=== PATIENT | female | born 1940 | race African-American/Black ===

== ENCOUNTER 2016-10-15 15:24 | Inpatient (IN) ==
[2016-10-15] MEDS ORDERED: methylPREDNISolone 125 MG/2 ML VIAL IVP ONE (15:46)
[2016-10-15 16:04] LABS: Basophils % 0.6 %; Eosinophils % 0.6 %; Hemoglobin 15.6 g/dL (11.5-15.4); Immature Granulocytes % 0.4 % (0-4); Lymphocytes % 20.8 %; Mean Corpuscular HGB Conc 32.5 g/dL (31.6-35.5); Mean Corpuscular Hemoglobin 30.2 pg (28.0-33.3); Mean Platelet Volume 9.3 fL (9.4-12.4); Monocytes # 0.4 K/mcL (0.0-1.3); Monocytes % 8.2 %; Neutrophils # 3.3 K/mcL (1.6-8.9); Nucleated Red Blood Cells 0.6 /100 WBC (0); Platelet Count 204 K/mcL (140-400); Red Blood Count 5.16 M/mcL (3.82-4.97); Red Cell Distribution Width 18.8 % (11.5-14.5); Segmented Neutrophils % 69.4 %
[2016-10-15 16:30] LABS: Calcium 9.8 mg/dL (8.6-10.8); Potassium 3.8 mEq/L (3.5-4.5)
[2016-10-15] MEDS ORDERED: Furosemide 40 MG/4 ML VIAL IVP ONE ×2 (17:30→20:14)
--- NOTE | 2016-10-15 17:56 | Emergency Department Note ---
Disposition Clinical Impression: VERITO (acute kidney injury) Congestive heart failure Qualifiers: Congestive heart failure type: unspecified congestive heart failure type Congestive heart failure chronicity: acute on chronic Qualified Code(s): I50.9 - Heart failure, unspecified Atrial fibrillation Qualifiers: Atrial fibrillation type: chronic Qualified Code(s): I48.2 - Chronic atrial fibrillation Disposition: Admitted As Inpatient Condition: Good Time of Disposition: 18:18 SOB HPI - General Chief Complaint: ED Shortness of Breath/Dyspnea Stated Complaint: SOB Time Seen by Provider: 10/15/16 15:25 Source: patient, family, EMS Limitations: no limitations Nursing Notes Reviewed: Yes Vital Signs Reviewed: Yes - History of Present Illness Patient presents to emergency room with an exacerbation of shortness of breath at home. Family is with her today and noticed that she is having an significant increased work of breathing. Patient otherwise denies any chest pain fevers chills nausea vomiting diarrhea headache or vision changes prior to the events just before arriving in the emergency room. Family was also concerned because over last several days she has had several other medical issues including some left-sided facial droop. They wanted her evaluated this time she refuses last time. No medication changes no recent trauma or injuries. X-ray of the chest does not reveal acute infiltrate. Her family also states that they noted a left-sided facial droop and slurred speech 2 days ago. Family states that this improved within 15 minutes of onset. No history of CVA. Patient will be admitted to the hospital for continuation of care. Onset (ago): Just [employer] Context: recent illness Severity: moderate Consistency/Duration: now resolved Improves with: oxygen, bronchodilators, upright position Worsens with: lying flat, exertion Known history of: COPD, congestive heart failure Associated symptoms: Reports: denies other symptoms Treatment prior to arrival: oxygen, bronchodilator - Related Data Home Medications Medication Instructions Recorded Confirmed Dabigatran [Pradaxa] 150 mg PO BID 07/06/15 10/15/16 Ferrous Sulfate 325 mg PO BID 07/06/15 10/15/16 Fluticasone Propionate [Flovent 1 puff IH BID 07/06/15 10/15/16 Hfa] Omeprazole [PriLOSEC] 40 mg PO QAM 07/06/15 10/15/16 Sertraline [Zoloft] 100 mg PO QAM 07/06/15 10/15/16 Simvastatin [Zocor] 40 mg PO QPM 07/06/15 10/15/16 Albuterol Sulfate [Proair Hfa] 2 puff IH Q4-6H PRN 10/15/16 10/15/16 Torsemide [Demadex] 20 mg PO QPM 10/15/16 10/15/16 Torsemide [Demadex] 40 mg PO QAM 10/15/16 10/15/16 Previous Rx's Medication Instructions Recorded Metoprolol XL (24 HR) Succ [Toprol 50 mg PO DAILY #30 tab.er.24h 07/12/15 Xl] Allergies Allergy/AdvReac Type Severity Reaction Status Date / Time No Known Allergies Allergy Verified 07/06/15 17:22 All systems ED: reviewed and negative except as stated. Constitutional: Denies: fever, chills Cardiovascular: Reports: dyspnea on exertion, orthopnea, edema. Denies: chest pain, palpitations Respiratory: Reports: dyspnea. Denies: cough, wheezes Gastrointestinal: Denies: nausea, vomiting, diarrhea Musculoskeletal: Denies: back pain, neck pain Past Medical History - Past Medical History Attestation: Yes The following information was validated with the patient. Source: patient Medical history: Reports: renal disease, GERD, atrial fibrillation, hyperlipidemia, hypertension, cardiomyopathy, CHF, COPD Psychiatric history: Reports: anxiety, depression - Social History Smoking Status: Never smoker Smokeless Tobacco Status: No Alcohol use: Reports: none Drug use: Reports: none Physical Exam - General Limitations: no limitations General appearance: alert - Chest Chest inspection: Present: normal inspection, symmetric chest wall rise. Absent : tenderness - Respiratory Respiratory exam: Present: normal lung sounds bilaterally. Absent: respiratory distress, wheezes, accessory muscle use - Cardiovascular Cardiovascular exam: Present: regular rate, normal rhythm, normal heart sounds - Abdominal Exam Abdominal exam: Present: soft, Non-Tender, normal bowel sounds. Absent: tenderness, distention, guarding, rebound, rigidity - Extremities Exam Extremities exam: Present: normal inspection, full ROM, normal capillary refill , pedal edema. Absent: tenderness - Back Exam Back exam: Present: normal inspection, full ROM - Neurological Exam Neurological exam: Present: alert, oriented X3, CN II-XII intact, normal gait - Skin Skin exam: Present: warm, dry, intact, normal color Course Course Narrative: Patient seen and examined on arrival. See history of present illness. 76-year- old female presents to the family for evaluation of shortness of breath. Onset was just prior to arrival. Patient has known CHF with poor pulmonary function and cardiac related disease. Family is also concerned because 3 days ago she had a strokelike symptom episode. The patient refused to come out of that time. She presents here today in no acute signs of neurologic deficit. No facial asymmetry no slurred speech. She was off work from his office. My physical exam shows no acute respiratory distress or issue. EMS discussed and described a pulse ox of 83% with accessory muscle use on the arrival to the house. Breathing treatments are given and pulse ox came up to 98% on oxygen. Patient typically does not use oxygen all day long but over the last several days she has required oxygen at all times. Lungs are coarse intermittent crackles and wheezing. NIH stroke scale is negative on presentation here. Family says that she has been back to normal. Patient says that she feels completely normal after being provided the breathing treatments. Lungs still are concerning and evaluation. Patient is pitting edema in lower extremity. Heart is irregular consistent with her history of A. fib. Abdomen soft nontender nondistended. She will be evaluated for cardiac or pulmonary related issues at this time a chest x-ray EKG troponin and BNP as well as basic laboratory workup for this time. CT of the head was ordered at the request of family secondary to strokelike symptoms before. We will review all these concerns medical intervention and discuss admission process. Patient also will need clinical evaluation admission to treat what appears to be exacerbation of either respiratory related issues or pulmonary edema. - Reevaluation(s) Reevaluation #1: Patient found to have a BNP of 2100. This is much higher than its ever been in the past. Patient has acute signs of CHF or heart failure. Lungs do have interstitial markings consistent with fluid accumulation. No focal consolidation. EKG was normal on evaluation. No acute changes or pathology. Patient provided with her home medication for diuresis by IV. Otherwise no other acute issues. She is breathing comfortably in the bed. Single dose of steroids also given here for treatment course. Vital signs of an stable patient is in no distress. Admission process completed. Consultation and conversation was placed in reviewed with the hospitalist nurse practitioner charan. We reviewed the presentation symptoms medical history and intervention. There are no other recommendations this time. Patient is stable resting comfortably in the bed in the mission process will be completed. Admission for acute exacerbation of congestive heart failure with outpatient failure management. Time: 18:15 Vital Signs Temperature 97.7 F 10/15/16 15:26 Pulse Rate 87 10/15/16 15:26 Respiratory Rate 20 10/15/16 15:26 Blood Pressure 101/76 10/15/16 15:26 O2 Sat by Pulse Oximetry 90 10/15/16 15:26 Temperature 97.9 F 10/16/16 07:26 Pulse Rate 66 10/16/16 07:26 Respiratory Rate 15 10/16/16 07:26 Blood Pressure 108/84 10/16/16 07:26 O2 Sat by Pulse Oximetry 95 10/16/16 07:26 Oxygen Delivery Oxygen Delivery Nasal Cannula Shortness of Breath/Dyspnea - MDM Narrative Medical decision making narrative: CHF, fluid overload, shortness of breath - Medical Records Medical records reviewed: Yes I reviewed the patient's medical records. - Lab Data Lab results reviewed: Yes I reviewed the patient's lab results. Result diagrams: 10/16/16 06:03 10/16/16 06:03 Lab Results 10/15/16 10/15/16 10/15/16 Range/Units 15:30 15:30 15:30 WBC 4.8 (4.3-11.1) K/mcL RBC 5.16 H (3.82-4.97) M/mcL Hgb 15.6 H (11.5-15.4) g/dL Hct 48.0 H (35.3-44.9) % MCV 93.0 (83.0-100.0) fL MCH 30.2 (28.0-33.3) pg MCHC 32.5 (31.6-35.5) g/dL RDW 18.8 H (11.5-14.5) % Plt Count 204 (140-400) K/mcL MPV 9.3 L (9.4-12.4) fL Immature Gran % 0.4 (0-4) % Seg Neutrophils % 69.4 % Lymphocytes % 20.8 % Monocytes % 8.2 % Eosinophils % 0.6 % Basophils % 0.6 % Neutrophils # 3.3 (1.6-8.9) K/mcL Lymphocytes # 1.0 (0.6-4.6) K/mcL Monocytes # 0.4 (0.0-1.3) K/mcL Eosinophils # 0.0 (0.0-0.6) K/mcL Basophils # 0.0 (0.0-0.2) K/mcL Nucleated RBCs/100 WBC 0.6 H (0) /100 WBC Sodium 138 (136-145) mEq/L Potassium 3.8 (3.5-4.5) mEq/L Chloride 106 (98-109) mEq/L Carbon Dioxide 16 L (19-29) mEq/L BUN 38 H (7-20) mg/dL Creatinine 1.58 H (0.57-1.11) mg/dL Est GFR ( Amer) 38 L (> 60) Est GFR (Non-Af Amer) 32 L (> 60) BUN/Creatinine Ratio 24 (6-26) Glucose 128 H (70-99) mg/dL Calculated Osmolality 297 (280-300) Calcium 9.8 (8.6-10.8) mg/dL Troponin I 0.03 (0-0.03) ng/mL B-Natriuretic Peptide (0-100) pg/mL 10/15/16 Range/Units 15:30 WBC (4.3-11.1) K/mcL RBC (3.82-4.97) M/mcL Hgb (11.5-15.4) g/dL Hct (35.3-44.9) % MCV (83.0-100.0) fL MCH (28.0-33.3) pg MCHC (31.6-35.5) g/dL RDW (11.5-14.5) % Plt Count (140-400) K/mcL MPV (9.4-12.4) fL Immature Gran % (0-4) % Seg Neutrophils % % Lymphocytes % % Monocytes % % Eosinophils % % Basophils % % Neutrophils # (1.6-8.9) K/mcL Lymphocytes # (0.6-4.6) K/mcL Monocytes # (0.0-1.3) K/mcL Eosinophils # (0.0-0.6) K/mcL Basophils # (0.0-0.2) K/mcL Nucleated RBCs/100 WBC (0) /100 WBC Sodium (136-145) mEq/L Potassium (3.5-4.5) mEq/L Chloride (98-109) mEq/L Carbon Dioxide (19-29) mEq/L BUN (7-20) mg/dL Creatinine (0.57-1.11) mg/dL Est GFR ( Amer) (> 60) Est GFR (Non-Af Amer) (> 60) BUN/Creatinine Ratio (6-26) Glucose (70-99) mg/dL Calculated Osmolality (280-300) Calcium (8.6-10.8) mg/dL Troponin I (0-0.03) ng/mL B-Natriuretic Peptide 2118 H (0-100) pg/mL - Radiology Data Radiology results reviewed: Yes I reviewed the patient's radiology results. Chest x-ray shows stable findings. No acute pathology. Mild interstitial markings consistent with fluid accumulation CT of the head is negative for acute pathology. Chronic microvascular disease - EKG Data EKG attestation: Yes I reviewed and interpreted this EKG. EKG shows normal: Reports: axis, intervals, QRS complexes, ST-T waves Rate: Reports: normal Rhythm: Reports: A.Fib When compared to previous EKG there are: no significant changes Interpretation: Reports: no acute changes, unchanged when compared to prior tracing (date) (09/22/15) Critical Care Time Critical Care Time: Yes Total Critical Care Time: 35 Attestation: Independent of procedures and medical management Attestation Statement - Attestation Attestation: I, Duncan Prasad, examined this patient and my medical decision-making was reviewed with the [facility]/PA/Advanced Practice Nurse/Resident Physician. I agree with the documented findings, disposition and treatment plan as described except to the extent set forth below. 76-year-old female presents with increasing shortness of breath with exertion over the past month. Family states that she is unable to walk up her porch steps at home without becoming short of breath. Patient has notes that she has increased swelling of bilateral lower extremities. She is recently switched from furosemide to torsemide. She denies chest pain, palpitations, diaphoresis , nausea, vomiting, abdominal pain. Denies a change in her diet history. Patient has an elevated BNP. Patient given 40 mg of Lasix in the emergency department. Patient agreed to admission to the hospital for further care.
[2016-10-15] MEDS ORDERED: Aspirin 81 MG TAB.CHEW PO ONE (18:56)
[2016-10-15] MEDS ORDERED: Naloxone 0.4 MG/ML INJ IVP PRN (20:22)
--- NOTE | 2016-10-15 20:39 | Internal Med History&Physical ---
<Inés Tee - Last Filed: 10/15/16 20:30> Date of Encounter: 10/15/16 Time of Encounter: 20:30 Assessment and Plan (1) Acute exacerbation of CHF (congestive heart failure) Current visit: Yes Status: Acute Patient with increasing shortness of breath, increasing BLE edema. BNP 2118. CXR shows interstitial markings consistent with fluid accumulation. Last Echo 07/07/15 showed LVEF of 60-65% with RVSP of 91mmHg, severe pulmonary hypertension, severe tricuspid regurg, RV pressure/volume overload and severe biatrial enlargement. Patient takes Torsemide 40mg am/20mg PM at home. 40mg Lasix IVP BID daily weights I/Os Titrate oxygen to maintain O2 sats > 90% Echocardiogram in the morning. Qualifiers: Congestive heart failure type: unspecified congestive heart failure type Qualified Code(s): I50.9 - Heart failure, unspecified (2) Atrial fibrillation Current visit: Yes Status: Chronic Patient with chronic afib, rate is controlled on metoprolol and she takes Pradaxa for anticoagulation Continue home doses of metoprolol and PRadaxa. Qualifiers: Atrial fibrillation type: chronic Qualified Code(s): I48.2 - Chronic atrial fibrillation (3) VERITO (acute kidney injury) Current visit: Yes Status: Acute Patient's creatinine is 1.58, up from her baseline of 1.07 on 01/05/16. May improve with improvement of her CHF. Monitor chemistry. (4) Chronic respiratory failure Current visit: No Status: Chronic Patient on 2-3L of oxygen at home. She is satting 90-92% on 2-3L here. Titrate oxygen to maintain O2 saturation > 90%. Qualifiers: Respiratory failure complication: hypoxia Qualified Code(s): J96.11 - Chronic respiratory failure with hypoxia (5) Pulmonary hypertension Current visit: No Status: Acute Patient with severe pulmonary hypertension as seen on echocardiogram 07/07/15. She follows with [facility] pulmonology and reports they switched her from lasix to torsemide. Her son reports the doctor she was seeing at [facility] left and so they need to reschedule her appointment. (6) DVT prophylaxis Current visit: No Status: Acute Ambulate with assistance anti-embolic stockings Patient on Pradaxa for her afib. Additional pharmacologic prophylaxis is not indicated. Internal Medicine - H&P: HPI Chief complaint: shortness of breath Admitted From: Emergency Dept Plans for Post Hospital Care: Home History of present illness: Ms. Obregon is a 76 year old female with HTN, Hyperlipidemia, CHF, pulmonary hypertension, afib on pradaxa, chronic respiratory failure on 2-3L NC at home, presented to the ED today with compliants of increasing shortness of breath and BLE edema over the last several months. She reports it has been gradually getting worse and she is having trouble with any activity because of the shortness of breath. She also reports occasional palpitations and occasional nausea. She denies any dizziness, lightheadedness, headache, chest pain, numbness or tingling. Evaluation in the ED revealed elevated BNP of 2118, VERITO with Cr of 1.58 up from baseline of 1.07. CXR showed interstitial markings consistant with fluid accumulation. EKG showed afib with no changes from previous EKG. On exam, patient is alert and oriented. She is tachypnic, though patient's son reports that seems to be her baseline over the last few months. She has fine crackles in bilateral lungs and +3 BLE edema. Heart has regular rate and rhythm with pansystolic murmur. Past Med Surg Social Fam HX - Past Medical History Medical history: renal disease, GERD, atrial fibrillation, hyperlipidemia, hypertension, cardiomyopathy, CHF, COPD Psychiatric history: anxiety, depression - Past Surgical History Surgical History: no surgical history - Social History Smoking Status: Former smoker Smokeless Tobacco Status: No Alcohol use: none Drug use: none - Family History Mother Adopted: No Family Member Ethnicity: Non- Living Status: Hx Family Cancer: Yes (unknown) Father Hx Family Cardiac Disorders: Yes (HTN, cardiac disease) Hx Family Endocrine Disorder: Yes (Diabetes) Internal Medicine - H&P: Meds Dabigatran [Pradaxa] 150 mg PO BID 07/06/15 [History] Ferrous Sulfate 325 mg PO BID 07/06/15 [History] Fluticasone Propionate [Flovent Hfa] 1 puff IH BID 07/06/15 [History] Omeprazole [PriLOSEC] 40 mg PO QAM 07/06/15 [History] Sertraline [Zoloft] 100 mg PO QAM 07/06/15 [History] Simvastatin [Zocor] 40 mg PO QPM 07/06/15 [History] Metoprolol XL (24 HR) Succ [Toprol Xl] 50 mg PO DAILY #30 tab.er.24h 07/12/15 [ Rx] Albuterol Sulfate [Proair Hfa] 2 puff IH Q4-6H PRN 10/15/16 [History] Torsemide [Demadex] 20 mg PO QPM 10/15/16 [History] Torsemide [Demadex] 40 mg PO QAM 10/15/16 [History] Allergies No Known Allergies Allergy (Verified 07/06/15 17:22) All Systems PM: A 10-system review of systems was performed and is negative for pertinent findings except as documented above in the HPI. - Constitutional Constitutional: no chills, no fever(s), no night sweats - EENT Eyes: no change in vision, no discharge, no pain, no photophobia Ears: no ear discharge, no ear pain, no tinnitus Nose, mouth and throat: no dysphagia, no nasal discharge, no neck pain, no sore throat - Cardiovascular Cardiovascular ROS IM: dyspnea, dyspnea on exertion, edema, palpitations, paroxysmal nocturnal dyspnea, no chest pain, no diaphoresis, no lightheadedness , no syncope - Respiratory Respiratory: cough (dry), dyspnea, dyspnea on exertion, no wheezing, no excessive phlegm production - Gastrointestinal Gastrointestinal: nausea (occasional), no abdominal pain, no diarrhea, no hematemesis, no hematochezia, no melena, no vomiting - Genitourinary Genitourinary: no change in urinary stream, no dysuria, no flank pain, no hematuria - Musculoskeletal Musculoskeletal ROS IM: no numbness, no tingling - Integumentary Integumentary IM: no rash, no unusual bruising - Neurological Neurological ROS: no confusion, no convulsions, no focal weakness, no numbness, no tingling, no tremor(s) - Hematologic/Lymphatic Hematologic/Lymphatic: no easy bruising - Constitutional Vitals: Temp Pulse Resp BP Pulse Ox 97.5 F L 61 18 103/83 89 10/15/16 20:07 10/15/16 20:07 10/15/16 20:07 10/15/16 20:07 10/15/16 20:07 General appearance: Present: A&O X 3, pleasant, no acute distress - Head Head exam: Present: atraumatic, normocephalic - Eye Eye exam: Present: PERRL, conjuntiva pink, sclera anicteric Pupils: Present: PERRL - Neck Neck exam general surgery: Present: supple, trachea midline. Absent: lymphadenopathy - Respiratory Respiratory exam: Present: rales, tachypnea. Absent: accessory muscle use, rhonchi, wheezes - Cardiovascular Cardiovascular exam: Present: RRR, +S1, +S2, systolic murmur. Absent: diastolic murmur, gallop, rubs - Expanded Cardiovascular Exam Intensity: 10/11 - GI/Abdominal GI/Abdominal exam: Present: normal bowel sounds, soft, no peritoneal signs. Absent: distended, tenderness - Extremities Exam Extremities exam: Present: pedal edema (+3 BLE edema), warm, radial pulses palpable and symetrical. Absent: calf tenderness, cyanotic - Neurological Exam Neurological exam: Present: CN II-XII intact, oriented X3, no focal deficits. Absent: facial droop, speech deficit - Skin Skin exam: Present: dry, intact Internal Med - H&P Results - Labs CBC & Chem 7: 10/15/16 15:30 10/15/16 15:30 Labs: All Lab Results (24 Hours) 10/15/16 10/15/16 10/15/16 Range/Units 15:30 15:30 15:30 WBC 4.8 (4.3-11.1) K/mcL RBC 5.16 H (3.82-4.97) M/mcL Hgb 15.6 H (11.5-15.4) g/dL Hct 48.0 H (35.3-44.9) % MCV 93.0 (83.0-100.0) fL MCH 30.2 (28.0-33.3) pg MCHC 32.5 (31.6-35.5) g/dL RDW 18.8 H (11.5-14.5) % Plt Count 204 (140-400) K/mcL MPV 9.3 L (9.4-12.4) fL Immature Gran % 0.4 (0-4) % Seg Neutrophils % 69.4 % Lymphocytes % 20.8 % Monocytes % 8.2 % Eosinophils % 0.6 % Basophils % 0.6 % Neutrophils # 3.3 (1.6-8.9) K/mcL Lymphocytes # 1.0 (0.6-4.6) K/mcL Monocytes # 0.4 (0.0-1.3) K/mcL Eosinophils # 0.0 (0.0-0.6) K/mcL Basophils # 0.0 (0.0-0.2) K/mcL Nucleated RBCs/100 WBC 0.6 H (0) /100 WBC Sodium 138 (136-145) mEq/L Potassium 3.8 (3.5-4.5) mEq/L Chloride 106 (98-109) mEq/L Carbon Dioxide 16 L (19-29) mEq/L BUN 38 H (7-20) mg/dL Creatinine 1.58 H (0.57-1.11) mg/dL Est GFR ( Amer) 38 L (> 60) Est GFR (Non-Af Amer) 32 L (> 60) BUN/Creatinine Ratio 24 (6-26) Glucose 128 H (70-99) mg/dL Calculated Osmolality 297 (280-300) Calcium 9.8 (8.6-10.8) mg/dL Troponin I 0.03 (0-0.03) ng/mL B-Natriuretic Peptide (0-100) pg/mL 10/15/16 Range/Units 15:30 WBC (4.3-11.1) K/mcL RBC (3.82-4.97) M/mcL Hgb (11.5-15.4) g/dL Hct (35.3-44.9) % MCV (83.0-100.0) fL MCH (28.0-33.3) pg MCHC (31.6-35.5) g/dL RDW (11.5-14.5) % Plt Count (140-400) K/mcL MPV (9.4-12.4) fL Immature Gran % (0-4) % Seg Neutrophils % % Lymphocytes % % Monocytes % % Eosinophils % % Basophils % % Neutrophils # (1.6-8.9) K/mcL Lymphocytes # (0.6-4.6) K/mcL Monocytes # (0.0-1.3) K/mcL Eosinophils # (0.0-0.6) K/mcL Basophils # (0.0-0.2) K/mcL Nucleated RBCs/100 WBC (0) /100 WBC Sodium (136-145) mEq/L Potassium (3.5-4.5) mEq/L Chloride (98-109) mEq/L Carbon Dioxide (19-29) mEq/L BUN (7-20) mg/dL Creatinine (0.57-1.11) mg/dL Est GFR ( Amer) (> 60) Est GFR (Non-Af Amer) (> 60) BUN/Creatinine Ratio (6-26) Glucose (70-99) mg/dL Calculated Osmolality (280-300) Calcium (8.6-10.8) mg/dL Troponin I (0-0.03) ng/mL B-Natriuretic Peptide 2118 H (0-100) pg/mL - Diagnostic Studies Chest x-ray Additional comments: Chest X-Ray 10/15/16 15:46 IMPRESSION: Gross but stable cardiomegaly. No acute airspace disease. Very large hiatal hernia. These findings are seen on recent CT as well. D/ / Boogie Orta MD / Boogie Orta MD Interpreting Provider: Boogie Orta MD CT scan - head Additional comments: Head CT 10/15/16 15:52 IMPRESSION: No acute intracranial abnormality. Chronic microvascular ischemic changes. D/ / Rafael Quigley MD / Rafael Quigley MD Interpreting Provider: Rafael Quigley MD <Ambar Noland R - Last Filed: 10/15/16 23:22> Date of Encounter: 10/15/16 Assessment and Plan (1) Acute and chronic respiratory failure Current visit: Yes Status: Acute due to CHF exacerbation. CIncrease supplemental O2, to keep sats > 92% Qualifiers: Respiratory failure complication: hypoxia Qualified Code(s): J96.21 - Acute and chronic respiratory failure with hypoxia Internal Medicine - H&P: HPI History of present illness: Ms. Obregon is a 76 year old female All Systems PM: A 10-system review of systems was performed and is negative for pertinent findings except as documented above in the HPI. - Constitutional Vitals: Temp Pulse Resp BP Pulse Ox 97.5 F L 61 18 103/83 92 10/15/16 20:07 10/15/16 20:07 10/15/16 20:07 10/15/16 20:07 10/15/16 20:20 Internal Med - H&P Results - Labs CBC & Chem 7: 10/15/16 15:30 10/15/16 15:30 - Attending Attestation I examined this patient and my medical decision-making was reviewed with the [employer] DESIGNER/ Advanced Practice Nurse. I agree with the documented findings, disposition and treatment plan as described except to the extent set forth below. 76 year old female with HTN, Hyperlipidemia, CHF, pulmonary hypertension, afib on pradaxa, chronic respiratory failure on 2-3L NC at home, presented to the ER with h/o increasing shortness of breath and BLE edema. Patient/daughter report history of pulmonary fibrosis, for which she follows with battery tester and repairer in [facility]. O/E: JVD; extensive bilateral crackles; irregular heart rhythm and a systolic murmur. Bilateral lower extremity edema. EKG personally reviewed by me shows atrial fibrillation, T-wave inversion in leads 1, 2, aVL, 3, V4 to V6. Imaging : CT head reported no acute intracranial abnormality. Chest x-ray reported cross but stable cardiomegaly. No acute airspace disease. BNP is elevated. A/P: Acute exacerbation of CHF (preserved LVEF: 60% based on echo from Jun 2015) : Obtain echocardiogram. Treat with IV Lasix; fluid restriction, daily weights , low sodium diet. Cardiology consultation. Supplement O2 for acute on chronic resp failure
[2016-10-15] MEDS: *HR* Dabigatran 150 MG CAPSULE PO SCH (21:42)
[2016-10-15] MEDS ORDERED: *HR* LORazepam 2 MG/ML VIAL IVP ONE (22:21)
[2016-10-16 06:18] LABS: Basophils % 0.3 %; Hematocrit 50.1 % (35.3-44.9); Hemoglobin 15.9 g/dL (11.5-15.4); Immature Granulocytes % 0.3 % (0-4); Lymphocytes % 24.1 %; Mean Corpuscular HGB Conc 31.7 g/dL (31.6-35.5); Mean Corpuscular Hemoglobin 29.3 pg (28.0-33.3); Mean Corpuscular Volume 92.4 fL (83.0-100.0); Mean Platelet Volume 8.9 fL (9.4-12.4); Monocytes # 0.2 K/mcL (0.0-1.3); Monocytes % 4.6 %; Neutrophils # 2.8 K/mcL (1.6-8.9); Nucleated Red Blood Cells 0.5 /100 WBC (0); Platelet Count 210 K/mcL (140-400); Red Blood Count 5.42 M/mcL (3.82-4.97); Red Cell Distribution Width 18.9 % (11.5-14.5); Segmented Neutrophils % 70.7 %
[2016-10-16 06:28] LABS: Calcium 10.1 mg/dL (8.6-10.8); Magnesium 2.1 mg/dL (1.6-2.6); Potassium 4.2 mEq/L (3.5-4.5)
[2016-10-16] MEDS ORDERED: Metoprolol XL (24 HR) Succ 50 MG TAB.ER.24H PO SCH (09:00)
[2016-10-16] MEDS: *HR* Dabigatran 150 MG CAPSULE PO SCH (09:40)
[2016-10-16] MEDS: Furosemide 40 MG/4 ML VIAL IVP SCH ×2 (09:41→16:17)
--- NOTE | 2016-10-16 10:42 | ECHO - Doppler Report ---
Echocardiogram Name: Susan Obregon Date of Study: 10/16/2016 Date: 1940 Ht: 64.0 in Medical Record#: [id number] Age: 76 Wt: 186.0 lb Gender: Female BSA: 1.9 Order #: [id number] Location: [facility] Room #: 2NE30 Reading Physician: Alis Henson DO Weigher Alloy: NATACHA BetancourtT Ordering Physician: Inés Tee CNP Primary Physician: Franck Andrade MD Indications: Congestive heart failure exacerbation Impressions: Technically inadequate study which was terminated prematurely at patient request. LV size and function appear normal in images provided, EF 55%. RV is suboptimally visualized. However, images provided demonstrate severe RV enlargement and hypokinesis. IVS flattening during diastole consistent with RV volume overload. Very severe right atrial enlargement with bowing of the septum into LA during cardiac cycle suggesting increased RA pressures. Moderate-severe tricuspid regurgitation. Mild pulmonic regurgitation. Valves were not all well evaluated due to premature termination of the study. Subcostal view and IVC were not visualized. Left Ventricular Wall Motion: Rest Echo Findings The apex, apical inferior, mid inferior, basal inferior, apical anterior, mid anterior and basal anterior holguin were not visualized. All other wall segments showed normal motion. Findings: Study Quality * Technically sub-optimal due to clinical status. Patient did not want to complete study. Images after Apical 4-CH were not obtained. ECG Findings * Normal sinus rhythm. Aorta * Normally sized aortic root. Aortic Valve * No aortic regurgitation. * Trileaflet aortic valve. * Mildly calcified aortic valve leaflets. Mitral Valve * No mitral regurgitation. * Normal mitral valve structure. * No mitral stenosis. Tricuspid Valve * Tricuspid valve not well visualized. * Moderate to severe tricuspid regurgitation. Degree of TR was not well evaluated. Pulmonic Valve * Pulmonic valve is not well visualized. * No pulmonic stenosis. * Mild pulmonic regurgitation. Pulmonary Artery * Pulmonary artery not well visualized. Left Atrium * Severely dilated left atrium. Right Atrium * The right atrium is very severely enlarged with septum bowing in the LA during the cardiac cycle. Left Ventricle * Normal LV chamber size, wall thickness and function. * LVEF 55%. * Indeterminate diastolic function. Right Ventricle * RV is suboptimally visualized. However, in images provided, RV appears severely dilated with hypokinetic function. Lat S Charanjit 5.8 History Hypertension Hypercholesteremia Congestive Heart Failure 07/07/15 a Previous Echo was performed. Measurements: BP: 108/ 84 2D Normal Values IVSd: 1.10 cm 0.6 - 1.0 cm LVIDd: 3.60 cm 3.7 - 5.6 cm LVPWd: 1.10 cm 0.6 - 1.1 cm LVIDs: 2.50 cm 1.5 - 3.6 cm AO: 2.45 cm < 4.0 cm LA: 4.50 cm 2.0 - 4.0cm %FS: 30.60 cm >25 % LA volume: 78 Mitral Valve Peak E:.54 m/sec Peak E' Lat Charanjit:14.8 cm/s Peak E' Med Charanjit:6.8 cm/s E/E' Lat Ratio:3.7 E/E' Med Ratio:8 Tricuspid Valve TV Regurg Peak Grad: 38.00mmHg TV Regurg Peak Charanjit: 3.08m/sec Updated by Alis Henson on 10/16/2016 10:34:28 AM electronically signed on 10/16/2016 10:38:42 AM with status of Final Wall Motion Yanes: 1=Normal, 2=Hypokinesis, 3=Akinesis, 4=Dyskinesis, 5=Aneurysmal, 6=Hyperkinetic, X=Not Visualized (Blank)=Missing
--- NOTE | 2016-10-16 12:48 | Cardiology Consult Note ---
Date of Encounter: 10/16/16 Time of Encounter: 12:42 Assessment and Plan (1) 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 Current Visit: Yes Status: Acute TTE completed and similair to previous TTE in 2015. EF 55%, RV suboptimally visualized, severe RV enlargement and hypokenesis. Flattening of IVS consistent with pressure/fluid overload. Very severe RA enlargement with bowing of intra-atrial septum into LA consistent with increased RA pressures. Moderate to severe tricuspid regurgitation. Mild AL. Fluid overload on exam. BNP 2118. Symptoms improved with IV lasix. Continue diuretic. Monitor BMP. Low sodium diet, daily weights, and strict I&O. No I&O documented yet. Pt evaluated late last year at [facility] heart failure clinic. CHF education reviewed. (2) Syncope Current Visit: Yes Status: Acute Reports syncopal episode, one three weeks ago and one this week that occurs with position change. Describes orthostasis. B/p marginally low. Discussed with Dr. Awilda Gao, we will decrease toprol. Continue to monitor. No concerning arrythmias seen on telemetry. Avg HR [address] head negative. Qualifiers: Syncope type: unspecified Qualified Code(s): R55 - Syncope and collapse (3) Atrial fibrillation Current Visit: Yes Status: Chronic H/o chronic afib on pradaxa. Telemetry review shows rate control. Qualifiers: Atrial fibrillation type: chronic Qualified Code(s): I48.2 - Chronic atrial fibrillation Discussion w patient/family: The assessment and plan as outlined above was discussed with the patient and/or family members who expressed understanding and agreement. All questions were answered. Thank you for involving us in the care of your patient. Please call with any questions. History of Present Illness Consult date: 10/16/16 Requesting physician: Ambar Noland Consult reason: CHF Chief complaint: SOB, syncope History of present illness: Ms. Obregon is a 76 year old female with a history of right sided heart failure CHF, pulmonary hypertension on home 02, COPD, and atrial fibrillation on pradaxa who presented with increasing SOB and BLE edema for three weeks. Cardiology consulted for CHF. As of note pt is a poor historian and family helped provide history. Daughter at bedside. presented after my exam and reported syncopal episode in the past couple of weeks. One was when she stood up and ambulated into the bathroom. He also states that she had facial drooping that resolved. CT of her head was negative. She denies chest pain or palpitations. SOB improved with IV lasix. She was evaluated at [facility] CHF clinic and by pulmonology and report reviewed. Right-sided heart failure thought to be secondary to diastolic dysfunction and COPD. No further testing completed. Diuretic was adjusted at that time. Past Med Surg Social Fam HX - Past Medical History Medical history: atrial fibrillation, CHF, COPD, GERD, hyperlipidemia, hypertension, renal disease, other (right sided heart failure, pulmonary hypertension, ) Psychiatric history: anxiety, depression - Past Surgical History Surgical History: no surgical history - Social History Smoking Status: Never smoker Smokeless Tobacco Status: No Alcohol use: none Drug use: none - Family History Mother Adopted: No Family Member Ethnicity: Non- Living Status: Hx Family Cancer: Yes (unknown) Father Hx Family Cardiac Disorders: Yes (HTN, cardiac disease) Hx Family Endocrine Disorder: Yes (Diabetes) Medications and Allergies Dabigatran [Pradaxa] 150 mg PO BID 07/06/15 [History] Ferrous Sulfate 325 mg PO BID 07/06/15 [History] Fluticasone Propionate [Flovent Hfa] 1 puff IH BID 07/06/15 [History] Omeprazole [PriLOSEC] 40 mg PO QAM 07/06/15 [History] Sertraline [Zoloft] 100 mg PO QAM 07/06/15 [History] Simvastatin [Zocor] 40 mg PO QPM 07/06/15 [History] Metoprolol XL (24 HR) Succ [Toprol Xl] 50 mg PO DAILY #30 tab.er.24h 07/12/15 [ Rx] Albuterol Sulfate [Proair Hfa] 2 puff IH Q4-6H PRN 10/15/16 [History] Torsemide [Demadex] 20 mg PO QPM 10/15/16 [History] Torsemide [Demadex] 40 mg PO QAM 10/15/16 [History] Allergies No Known Allergies Allergy (Verified 07/06/15 17:22) All Systems Review: A 10-system review of systems was performed and is negative for pertinent findings except as documented above in the HPI. Physical Examination Vital Signs, Last 4 Hours Temp Pulse Resp BP Pulse Ox 10/16/16 11:50 97.5 F L 60 16 99/73 93 10/16/16 09:00 95 General: No Apparent Distress, Other (Pt falls asleep easily during exam. ) HEENT: Atraumatic, Normocephaly, Mucus Membranes Moist Neck: No JVD, Normal carotid pulses Cardiac: Other (Irregularly irregular) Lungs: Other (Faint rales bilateral bases increased on left. ) Neuro: Alert and responsive, No focal deficits noted Abdomen: Soft, Non-Tender Skin: No rashes noted on visualized skin Musculoskeletal: No Chest Wall Tenderness Extremities: No Clubbing, No Cyanosis, Normal Pulses, Other (2+ edema up to knees. ) Results 10/16/16 06:03 10/16/16 06:03 Lab Results 10/16/16 10/16/16 06:03 06:03 WBC 3.9 L Hgb 15.9 H Hct 50.1 H Plt Count 210 Sodium 137 Potassium 4.2 Chloride 104 Carbon Dioxide 17 L BUN 41 H Creatinine 1.70 H Glucose 143 H Calcium 10.1 Magnesium 2.1 - Imaging and Cardiology Echo: report reviewed - EKG Interpretation EKG results cardiology: other (Telemetry review shows atrial fibrillation rate controlled. Avg HR 71.) Consult Discharge Plan - Plan Referrals: Franck Andrade MD [Primary Care Provider] -
--- NOTE | 2016-10-16 14:03 | Internal Med Progress Note ---
<Aure Garrett - Last Filed: 10/16/16 15:36> Date of Encounter: 10/16/16 Time of Encounter: 14:01 - Assessment and plan (1) Acute exacerbation of CHF (congestive heart failure) Current Visit: Yes Status: Acute Assessment and plan: Echo similar to previous from 2014. EF 55%, severe RV enlargement and hypokinesis. Flattening of IVS consistent with pressure/fluid overload. Very severe RA enlargement with bowing of intra-atrial septum into LA consistent with increased RA pressures. Moderate to severe tricuspid regurgitation. low Na diet, daily weights, I/Os IV lasix 40mg BID (Patient takes Torsemide 40mg am/20mg PM at home.) Qualifiers: Congestive heart failure type: unspecified congestive heart failure type Qualified Code(s): I50.9 - Heart failure, unspecified (2) Acute and chronic respiratory failure Current Visit: Yes Status: Acute Assessment and plan: requires 2.5-3 L O2 at home (2.5 at rest, 3 while ambulating) currently on 4L O2, titrate O2 to maintain sats >90% Qualifiers: Respiratory failure complication: hypoxia Qualified Code(s): J96.21 - Acute and chronic respiratory failure with hypoxia (3) VERITO (acute kidney injury) Current Visit: Yes Status: Acute Assessment and plan: renal function slightly worse today Cr 1.58>1.7 GFR 38>35 continue to monitor baseline 01/05/16 Cr 1.07 GFR >60 (4) Atrial fibrillation Current Visit: Yes Status: Chronic Assessment and plan: rate controlled continue home medications of metoprolol and pradaxa Qualifiers: Atrial fibrillation type: chronic Qualified Code(s): I48.2 - Chronic atrial fibrillation (5) DVT prophylaxis Current Visit: No Status: Acute Assessment and plan: Ambulate with assistance anti-embolic stockings Patient on Pradaxa for her afib. Additional pharmacologic prophylaxis is not indicated. - Subjective Interval history: Patient feeling better than yesterday. Still with increased O2 requirements. - Constitutional Vitals: Temp Pulse Resp BP Pulse Ox 97.5 F L 60 16 99/73 93 10/16/16 11:50 10/16/16 11:50 10/16/16 11:50 10/16/16 11:50 10/16/16 11:50 General appearance: Present: A&O X 3, pleasant, no acute distress - Head Head exam: Present: atraumatic, normocephalic - Eye Eye exam: Present: EOMI, PERRL, sclera anicteric - Neck Neck exam general surgery: Present: supple - Respiratory Respiratory exam: Present: rales - Cardiovascular Cardiovascular exam: Present: irregular rhythm, +S1, +S2, systolic murmur - GI/Abdominal GI/Abdominal exam: Present: normal bowel sounds, soft. Absent: tenderness - Extremities Exam Extremities exam: Present: pedal edema (1+) - Neurological Exam Neurological exam: Present: alert, oriented X3, no focal deficits - Skin Skin exam: Present: dry, warm Internal Medicine: Result - Labs CBC & Chem 7: 10/16/16 06:03 10/16/16 06:03 Labs: Short CBC 10/16/16 Range/Units 06:03 WBC 3.9 L (4.3-11.1) K/mcL Hgb 15.9 H (11.5-15.4) g/dL Hct 50.1 H (35.3-44.9) % Plt Count 210 (140-400) K/mcL Neutrophils # 2.8 (1.6-8.9) K/mcL BMP 10/16/16 06:03 Sodium 137 Potassium 4.2 Chloride 104 Carbon Dioxide 17 L BUN 41 H Creatinine 1.70 H Glucose 143 H Calcium 10.1 - VTE Reasons for not Prescribing Prophylaxis: Not indicated-Anticoagulated or INR therapeutic Consult Discharge Plan - Plan Referrals: Franck Andrade MD [Primary Care Provider] - <Pepe Raygoza - Last Filed: 10/16/16 17:54> Date of Encounter: 10/16/16 - Assessment and plan (1) Acute and chronic respiratory failure Current Visit: Yes Status: Acute Qualifiers: Respiratory failure complication: hypoxia Qualified Code(s): J96.21 - Acute and chronic respiratory failure with hypoxia (2) Acute exacerbation of CHF (congestive heart failure) Current Visit: Yes Status: Acute Qualifiers: Congestive heart failure type: diastolic Qualified Code(s): I50.33 - Acute on chronic diastolic (congestive) heart failure (3) 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 Current Visit: Yes Status: Acute Assessment and plan: R heart failure noted on echo. (4) Atrial fibrillation Current Visit: Yes Status: Chronic Qualifiers: Atrial fibrillation type: chronic Qualified Code(s): I48.2 - Chronic atrial fibrillation (5) Pulmonary hypertension Current Visit: No Status: Acute (6) VERITO (acute kidney injury) Current Visit: Yes Status: Acute (7) CKD (chronic kidney disease) Current Visit: No Status: Chronic Qualifiers: Chronic kidney disease stage: stage 3 (moderate) Qualified Code(s): N18.3 - Chronic kidney disease, stage 3 (moderate) - Constitutional Vitals: Temp Pulse Resp BP Pulse Ox 97.5 F L 61 17 106/68 93 10/16/16 15:51 10/16/16 15:51 10/16/16 15:51 10/16/16 15:51 10/16/16 15:51 Internal Medicine: Result - Labs CBC & Chem 7: 10/16/16 06:03 10/16/16 06:03 Labs: Short CBC 10/16/16 Range/Units 06:03 WBC 3.9 L (4.3-11.1) K/mcL Hgb 15.9 H (11.5-15.4) g/dL Hct 50.1 H (35.3-44.9) % Plt Count 210 (140-400) K/mcL Neutrophils # 2.8 (1.6-8.9) K/mcL BMP 10/16/16 06:03 Sodium 137 Potassium 4.2 Chloride 104 Carbon Dioxide 17 L BUN 41 H Creatinine 1.70 H Glucose 143 H Calcium 10.1 - Attending Attestation I examined this patient and my medical decision-making was reviewed with the Resident Physician on 10/16/16. I agree with the documented findings, disposition and treatment plan as described except to the extent set forth below. Ms. Obregon is currently admitted for acute exac chronic diastolic CHF. She remains moderate to high risk due to potential for worsening cardiac issues. Ms. Obregon is beginning to feel somewhat better. She has had some diuresis but not back to baseline. No CP. No GI symptoms. Exam Alert. Comfortable and pleasant Heart reg with systolic murmur Lungs diminished but clear currently Abd soft Edema present I/P 1. Acute on chronic diastolic heart failure 2. Pulmonary hypertension 3. Hypoxic resp failure. 4. VERITO Further diagnoses and plan as above. Anticipate d/c in next 1-2 days.
--- NOTE | 2016-10-16 17:44 | Electrocardiograph Report ---
[place] [id number] Test Date: 2016-10-15 Pat Name: Susan Obregon Department: 102 Room: 2NE30 Gender: F Back Tufter: : 1940 Requested By: Dennis Maciel Order Number: [id number] Reading MD: Duncan Gao Measurements Intervals [place] Rate: 85 P: LA: 0 QRS: 92 QRSD: 110 T: 116 QT: 362 QTc: 405 Interpretive Statements ATRIAL FIBRILLATION BORDERLINE RIGHT AXIS DEVIATION INCOMPLETE RIGHT BUNDLE BRANCH BLOCK NONSPECIFIC T-WAVE ABNORMALITY ABNORMAL RHYTHM ECG Electronically Signed On 10-16-2016 17:42:24 EDT by Duncan Gao
[2016-10-16] MEDS: *HR* Dabigatran 75 MG CAPSULE PO SCH (20:41)
[2016-10-17] MEDS: *HR* Dabigatran 75 MG CAPSULE PO SCH ×2 (08:55→20:42)
[2016-10-17] MEDS: Metoprolol XL (24 HR) Succ 50 MG TAB.ER.24H PO SCH (08:55)
[2016-10-17 09:01] LABS: Potassium 3.8 mEq/L (3.5-4.5)
--- NOTE | 2016-10-17 09:28 | Internal Med Progress Note ---
<Aure Garrett - Last Filed: 10/17/16 09:26> Date of Encounter: 10/17/16 Time of Encounter: 09:26 - Assessment and plan (1) Acute exacerbation of CHF (congestive heart failure) Current Visit: Yes Status: Acute Assessment and plan: Echo similar to previous from 2014. EF 55%, severe RV enlargement and hypokinesis. Flattening of IVS consistent with pressure/fluid overload. Very severe RA enlargement with bowing of intra-atrial septum into LA consistent with increased RA pressures. Moderate to severe tricuspid regurgitation. low Na diet, daily weights, I/Os IV lasix 40mg BID (Patient takes Torsemide 40mg am/20mg PM at home.) No output recorded for yesterday, although patient did lose 0.9 kg. Strict I&O order placed. Qualifiers: Congestive heart failure type: diastolic Qualified Code(s): I50.33 - Acute on chronic diastolic (congestive) heart failure (2) Acute and chronic respiratory failure Current Visit: Yes Status: Acute Assessment and plan: requires 2.5-3 L O2 at home (2.5 at rest, 3 while ambulating) currently on 5L O2, titrate O2 to maintain sats >90% Qualifiers: Respiratory failure complication: hypoxia Qualified Code(s): J96.21 - Acute and chronic respiratory failure with hypoxia (3) VERITO (acute kidney injury) Current Visit: Yes Status: Acute Assessment and plan: renal function improved Cr 1.58>1.7>1.56 GFR 38>35>39 continue to monitor baseline 01/05/16 Cr 1.07 GFR >60 (4) Atrial fibrillation Current Visit: Yes Status: Chronic Assessment and plan: rate controlled continue home medications of metoprolol and pradaxa Qualifiers: Atrial fibrillation type: chronic Qualified Code(s): I48.2 - Chronic atrial fibrillation (5) DVT prophylaxis Current Visit: No Status: Acute Assessment and plan: Ambulate with assistance anti-embolic stockings Patient on Pradaxa for her afib. Additional pharmacologic prophylaxis is not indicated. - Subjective Interval history: Patient feeling better than yesterday. Still with increased O2 requirements although denies shortness of breath. - Constitutional Vitals: Temp Pulse Resp BP Pulse Ox 97.8 F 58 16 100/65 93 10/17/16 07:18 10/17/16 07:18 10/17/16 07:18 10/17/16 07:18 10/17/16 07:18 General appearance: Present: A&O X 3, pleasant, no acute distress - Head Head exam: Present: atraumatic, normocephalic - Eye Eye exam: Present: EOMI, PERRL, sclera anicteric - Neck Neck exam general surgery: Present: supple - Respiratory Respiratory exam: Present: CTAB - Cardiovascular Cardiovascular exam: Present: irregular rhythm, +S1, +S2, systolic murmur - GI/Abdominal GI/Abdominal exam: Present: normal bowel sounds, soft. Absent: tenderness - Extremities Exam Extremities exam: Present: pedal edema (1+), warm Additional comments: dorsalis pedis pulses 2/4 - Neurological Exam Neurological exam: Present: alert, oriented X3, no focal deficits - Skin Skin exam: Present: dry, warm Internal Medicine: Result - Labs CBC & Chem 7: 10/16/16 06:03 10/17/16 08:41 Labs: BMP 10/17/16 08:41 Sodium 139 Potassium 3.8 Chloride 106 Carbon Dioxide 20 BUN 44 H Creatinine 1.56 H Glucose 99 Calcium 10.0 - VTE Reasons for not Prescribing Prophylaxis: Not indicated-Anticoagulated or INR therapeutic Consult Discharge Plan - Plan Instructions: Heart Failure (DC), Atrial Fibrillation (DC), Acute Respiratory Distress Syndrome (DC), Acute Kidney Injury (DC), Acute Kidney Injury (GEN), Cellulitis (DC), Chronic Obstructive Pulmonary Disease (DC), Pneumonia (DC), Acute Kidney Injury, [employer] (GEN) Referrals: Franck Andrade MD [Primary Care Provider] - <Pepe Raygoza - Last Filed: 10/18/16 19:48> Date of Encounter: 10/17/16 - Assessment and plan (1) Acute and chronic respiratory failure Current Visit: Yes Status: Acute Qualifiers: Respiratory failure complication: hypoxia Qualified Code(s): J96.21 - Acute and chronic respiratory failure with hypoxia (2) Acute exacerbation of CHF (congestive heart failure) Current Visit: Yes Status: Acute Qualifiers: Congestive heart failure type: diastolic Qualified Code(s): I50.33 - Acute on chronic diastolic (congestive) heart failure (3) 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 Current Visit: Yes Status: Acute Assessment and plan: R heart failure. (4) Atrial fibrillation Current Visit: Yes Status: Chronic Qualifiers: Atrial fibrillation type: chronic Qualified Code(s): I48.2 - Chronic atrial fibrillation (5) Pulmonary hypertension Current Visit: No Status: Chronic (6) VERITO (acute kidney injury) Current Visit: Yes Status: Acute (7) CKD (chronic kidney disease) Current Visit: No Status: Chronic Qualifiers: Chronic kidney disease stage: stage 3 (moderate) Qualified Code(s): N18.3 - Chronic kidney disease, stage 3 (moderate) - Constitutional Vitals: Temp Pulse Resp BP Pulse Ox 97.8 F 77 18 100/79 94 10/18/16 16:00 10/18/16 16:00 10/18/16 16:00 10/18/16 16:00 10/18/16 16:00 Internal Medicine: Result - Labs CBC & Chem 7: 10/16/16 06:03 10/18/16 05:40 Labs: BMP 10/18/16 05:40 Sodium 138 Potassium 3.5 Chloride 106 Carbon Dioxide 19 BUN 41 H Creatinine 1.33 H Glucose 90 Calcium 9.6 - Impressions Impressions Chest X-Ray 10/18/16 10:05 IMPRESSION: No acute cardiopulmonary process. D/ / 10/18/2016 15:16:34 Vicente Murillo MD / earnold Interpreting Provider: Vicente Murillo MD - Attending Attestation I examined this patient and my medical decision-making was reviewed with the Resident Physician on 10/18/16. I agree with the documented findings, disposition and treatment plan as described except to the extent set forth below. Ms. Obregon is currently admitted for acute exac diastolic heart failure and VERITO. She is moderate to high risk due to potential for worsening cardiac status. Ms. Obregon still is quite edematous. She has diuresed some but still dyspneic. No diarrhea. No fever, chills or chest pain. Exam Alert Comfortable Heart reg with murmur Lungs with rales Edema present I/P 1. Acute diastolic heart failure 2. Resp failure Further diagnoses and plan as above.
--- NOTE | 2016-10-17 09:59 | Cardiology Progress Note ---
Date of Encounter: 10/17/16 Time of Encounter: 09:15 Assessment and Plan (1) 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 Current Visit: Yes Status: Acute TTE completed and similair to previous TTE in 2015. EF 55%, RV suboptimally visualized, severe RV enlargement and hypokenesis. Flattening of IVS consistent with pressure/fluid overload. Very severe RA enlargement with bowing of intra-atrial septum into LA consistent with increased RA pressures. Moderate to severe tricuspid regurgitation. Mild WI. Fluid overload on exam. BNP 2118. Symptoms improved with IV lasix. Continue diuretic. Creatinine improving. Monitor BMP. (On torsemide 40 mg am and 20 mg pm at home.) Low sodium diet, daily weights, and strict I&O. ~ No I&O recorded. Again, discussed with nursing staff and patient importance of I&O. Weight down .8 kg. BLE edema chronic per family but still increased from baseline. Pt evaluated late last year at [facility] heart failure clinic, symptom management recommended. No further testing at that time. No RHC recommended. CHF education reviewed with patient. (2) Syncope Current Visit: Yes Status: Acute Son reports pt had syncopal episode, one three weeks ago and one this week that occurs with position change. Patient does not remember syncope. Describes orthostasis. B/p marginally low. Discussed with Dr. Awilda Gao, toprol xl decreased yesterday. Continue to monitor. No concerning arrhythmias seen on telemetry. Avg HR [address] head negative. Qualifiers: Syncope type: unspecified Qualified Code(s): R55 - Syncope and collapse (3) Atrial fibrillation Current Visit: Yes Status: Chronic H/o chronic afib on pradaxa. Telemetry review shows rate controlled afib. Tolerating lower dose of toprol XL. Qualifiers: Atrial fibrillation type: chronic Qualified Code(s): I48.2 - Chronic atrial fibrillation Discussion w patient/family: The assessment and plan as outlined above was discussed with the patient and/or family members who expressed understanding and agreement. All questions were answered. Thank you for involving us in the care of your patient. Please call with any questions. Subjective Principal diagnosis: right sided CHF Interval history: Pt sitting in chair. Reports SOB improved. Continues to have BLE edema. She is a poor historian. No family available at this time. Objective Vital Signs, Last 4 Hours Temp Pulse Resp BP Pulse Ox 10/17/16 07:18 97.8 F 58 16 100/65 93 General: Conversant, No Apparent Distress HEENT: Atraumatic, Normocephaly, Mucus Membranes Moist Neck: No JVD, Normal carotid pulses Cardiac: Other (Irregularly irregular) Lungs: Normal Breath Sounds, No Wheeze, Rales, Rhonchi Neuro: Alert and responsive, No focal deficits noted Abdomen: Soft, Non-Tender Skin: No rashes noted on visualized skin Musculoskeletal: No Chest Wall Tenderness Extremities: No Clubbing, No Cyanosis, Normal Pulses, Other (2+ BLE edema up to knees.) Results 10/16/16 06:03 10/17/16 08:41 Lab Results 10/17/16 08:41 Sodium 139 Potassium 3.8 Chloride 106 Carbon Dioxide 20 BUN 44 H Creatinine 1.56 H Glucose 99 Calcium 10.0 - Imaging and Cardiology Echo: report reviewed - EKG Interpretation EKG results cardiology: other (Telemetry review shows atrial fibrillation HR currently 70-90's. Avg HR 65 bpm.) - VTE Reasons for not Prescribing Prophylaxis: Not indicated-Anticoagulated or INR therapeutic Consult Discharge Plan - Plan Referrals: Franck Andrade MD [Primary Care Provider] -
[2016-10-17] MEDS: Furosemide 40 MG/4 ML VIAL IVP SCH ×2 (10:40→16:27)
[2016-10-18 06:24] LABS: Calcium 9.6 mg/dL (8.6-10.8); Potassium 3.5 mEq/L (3.5-4.5)
[2016-10-18] MEDS ORDERED: Furosemide 40 MG TABLET PO SCH (08:45)
[2016-10-18] MEDS: *HR* Dabigatran 75 MG CAPSULE PO SCH ×2 (09:34→21:51)
[2016-10-18] MEDS: Metoprolol XL (24 HR) Succ 50 MG TAB.ER.24H PO SCH (09:34)
[2016-10-18] MEDS ORDERED: Furosemide 40 MG/4 ML VIAL IVP SCH ×2 (10:15→17:00)
--- NOTE | 2016-10-18 14:07 | Cardiology Progress Note ---
Date of Encounter: 10/18/16 Time of Encounter: 13:30 Assessment and Plan (1) 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 Current Visit: Yes Status: Acute Patient presents with 2 week history of worsening shortness of breath and difficulty breathing. CXR upon presentation: stable, but gross cardiomegaly. BNP 2117 TTE 10/16/16: EF 55%, RV suboptimally visualized, severe RV enlargement and hypokenesis. Flattening of IVS consistent with pressure/fluid overload. Very severe RA enlargement with bowing of intra-atrial septum into LA consistent with increased RA pressures. Moderate to severe tricuspid regurgitation. Mild KS ---similar to TTE in 2015. Continues to exhibit volume overload upon exam. States symptoms have improved, not yet at baseline. Will increase lasix to 80 mg BID, add supplemental K as it was low normal today. SCr continues to improve with diuresis, continue to monitor kidney function closely. I&O are not accurate as patient is incontinent at times. Cumulative balance: + 660mL. Weight is down 0.8 kg today. Continue strict I&O (refuses fried cath), Na/Fluid restriction diet, and daily weights. Of note, Pt evaluated late last year at [facility] heart failure clinic, symptom management recommended. No further testing at that time. No RHC recommended. CHF education reviewed with patient. (2) Atrial fibrillation Current Visit: Yes Status: Chronic H/o chronic afib on pradaxa. Telemetry review shows rate controlled afib. Tolerating lower dose of toprol XL. Qualifiers: Atrial fibrillation type: chronic Qualified Code(s): I48.2 - Chronic atrial fibrillation (3) Syncope Current Visit: Yes Status: Acute Son reports pt had syncopal episode, one three weeks ago and one this week that occurs with position change. Patient does not remember syncope. Describes orthostasis. B/p marginally low. Toprol decreased; patient is asymptomatic. Denies complaints overnight. 12 hour tele: avg HR 66 bpm atrial fibrillation. No pause or block noted. CT head negative. Qualifiers: Syncope type: unspecified Qualified Code(s): R55 - Syncope and collapse Discussion w patient/family: The assessment and plan as outlined above was discussed with the patient and/or family members who expressed understanding and agreement. All questions were answered. Thank you for involving us in the care of your patient. Please call with any questions. The patient will be discussed and reviewed with Dr. Mendez; changes to be made accordingly. Subjective Principal diagnosis: right sided CHF Objective Vital Signs, Last 4 Hours Temp Pulse Resp BP Pulse Ox 10/18/16 12:00 91 10/18/16 11:22 97.6 F 72 18 106/77 91 Results 10/16/16 06:03 10/18/16 05:40 Lab Results 10/18/16 05:40 Sodium 138 Potassium 3.5 Chloride 106 Carbon Dioxide 19 BUN 41 H Creatinine 1.33 H Glucose 90 Calcium 9.6 - VTE Reasons for not Prescribing Prophylaxis: Not indicated-Anticoagulated or INR therapeutic Consult Discharge Plan - Plan Instructions: Heart Failure (DC), Atrial Fibrillation (DC), Acute Respiratory Distress Syndrome (DC), Acute Kidney Injury (DC), Acute Kidney Injury (GEN), Cellulitis (DC), Chronic Obstructive Pulmonary Disease (DC), Pneumonia (DC), Acute Kidney Injury, Compliance Quality Performance Analyst (GEN) Referrals: Franck Andrade MD [Primary Care Provider] -
--- NOTE | 2016-10-18 15:41 | Internal Med Progress Note ---
<Aure Garrett - Last Filed: 10/18/16 15:38> Date of Encounter: 10/18/16 Time of Encounter: 15:38 - Assessment and plan (1) Acute exacerbation of CHF (congestive heart failure) Current Visit: Yes Status: Acute Assessment and plan: Echo similar to previous from 2014. EF 55%, severe RV enlargement and hypokinesis. Flattening of IVS consistent with pressure/fluid overload. Very severe RA enlargement with bowing of intra-atrial septum into LA consistent with increased RA pressures. Moderate to severe tricuspid regurgitation. appreciate cardiology recommendations low Na diet, daily weights, I/Os (I&Os inaccurate due to patient incontinence) lasix increased to 80 mg IV BID potassium added due to K 3.5 this AM Qualifiers: Congestive heart failure type: diastolic Qualified Code(s): I50.33 - Acute on chronic diastolic (congestive) heart failure (2) Acute and chronic respiratory failure Current Visit: Yes Status: Acute Assessment and plan: requires 2.5-3 L O2 at home (2.5 at rest, 3 while ambulating) currently on 5L O2, titrate O2 to maintain sats >90% unable to decrease O2 at this time. Chest x-ray negative for acute process Qualifiers: Respiratory failure complication: hypoxia Qualified Code(s): J96.21 - Acute and chronic respiratory failure with hypoxia (3) VERITO (acute kidney injury) Current Visit: Yes Status: Acute Assessment and plan: renal function improved Cr 1.58>1.7>1.56>1.33 GFR 38>35>39>47 continue to monitor baseline 01/05/16 Cr 1.07 GFR >60 (4) Atrial fibrillation Current Visit: Yes Status: Chronic Assessment and plan: rate controlled continue home medications of metoprolol and pradaxa Qualifiers: Atrial fibrillation type: chronic Qualified Code(s): I48.2 - Chronic atrial fibrillation (5) DVT prophylaxis Current Visit: No Status: Acute Assessment and plan: Ambulate with assistance anti-embolic stockings Patient on Pradaxa for her afib. Additional pharmacologic prophylaxis is not indicated. - Subjective Interval history: Patient feeling better than yesterday. Still with increased O2 requirements although denies shortness of breath. Still fluid overloaded. - Constitutional Vitals: Temp Pulse Resp BP Pulse Ox 97.6 F 72 18 106/77 91 10/18/16 11:22 10/18/16 11:22 10/18/16 11:22 10/18/16 11:22 10/18/16 12:00 General appearance: Present: A&O X 3, pleasant, no acute distress - Head Head exam: Present: atraumatic, normocephalic - Eye Eye exam: Present: EOMI, PERRL, conjuntiva pink, sclera anicteric - Neck Neck exam general surgery: Present: supple - Respiratory Respiratory exam: Present: CTAB - Cardiovascular Cardiovascular exam: Present: irregular rhythm, +S1, +S2. Absent: systolic murmur - GI/Abdominal GI/Abdominal exam: Present: normal bowel sounds, soft. Absent: tenderness - Extremities Exam Extremities exam: Present: pedal edema (1-2+), warm. Absent: tenderness - Neurological Exam Neurological exam: Present: alert, CN II-XII intact, oriented X3, no focal deficits - Skin Skin exam: Present: dry, intact, warm Internal Medicine: Result - Labs CBC & Chem 7: 10/16/16 06:03 10/18/16 05:40 Labs: BMP 10/18/16 05:40 Sodium 138 Potassium 3.5 Chloride 106 Carbon Dioxide 19 BUN 41 H Creatinine 1.33 H Glucose 90 Calcium 9.6 - Impressions Impressions Chest X-Ray 10/18/16 10:05 IMPRESSION: No acute cardiopulmonary process. D/ / 10/18/2016 15:16:34 Vicente Murillo MD / earnold Interpreting Provider: Vicente Murillo MD - VTE Reasons for not Prescribing Prophylaxis: Not indicated-Anticoagulated or INR therapeutic Consult Discharge Plan - Plan Instructions: Heart Failure (DC), Atrial Fibrillation (DC), Acute Respiratory Distress Syndrome (DC), Acute Kidney Injury (DC), Acute Kidney Injury (GEN), Cellulitis (DC), Chronic Obstructive Pulmonary Disease (DC), Pneumonia (DC), Acute Kidney Injury, Water Well Driller (GEN) Referrals: Franck Andrade MD [Primary Care Provider] - <Pepe Raygoza - Last Filed: 10/18/16 19:58> Date of Encounter: 10/18/16 - Assessment and plan (1) Acute and chronic respiratory failure Current Visit: Yes Status: Acute Qualifiers: Respiratory failure complication: hypoxia Qualified Code(s): J96.21 - Acute and chronic respiratory failure with hypoxia (2) Acute exacerbation of CHF (congestive heart failure) Current Visit: Yes Status: Acute Qualifiers: Congestive heart failure type: diastolic Qualified Code(s): I50.33 - Acute on chronic diastolic (congestive) heart failure (3) 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 Current Visit: Yes Status: Acute (4) Atrial fibrillation Current Visit: Yes Status: Chronic Qualifiers: Atrial fibrillation type: chronic Qualified Code(s): I48.2 - Chronic atrial fibrillation (5) Pulmonary hypertension Current Visit: No Status: Chronic (6) VERITO (acute kidney injury) Current Visit: Yes Status: Acute (7) CKD (chronic kidney disease) Current Visit: No Status: Chronic Qualifiers: Chronic kidney disease stage: stage 3 (moderate) Qualified Code(s): N18.3 - Chronic kidney disease, stage 3 (moderate) - Constitutional Vitals: Temp Pulse Resp BP Pulse Ox 97.8 F 77 18 100/79 94 10/18/16 16:00 10/18/16 16:00 10/18/16 16:00 10/18/16 16:00 10/18/16 16:00 Internal Medicine: Result - Labs CBC & Chem 7: 10/16/16 06:03 10/18/16 05:40 Labs: BMP 10/18/16 05:40 Sodium 138 Potassium 3.5 Chloride 106 Carbon Dioxide 19 BUN 41 H Creatinine 1.33 H Glucose 90 Calcium 9.6 - Impressions Impressions Chest X-Ray 10/18/16 10:05 IMPRESSION: No acute cardiopulmonary process. D/ / 10/18/2016 15:16:34 Vicente Murillo MD / earnold Interpreting Provider: Vicente Murillo MD - Attending Attestation I examined this patient and my medical decision-making was reviewed with the Resident Physician on 10/18/16. I agree with the documented findings, disposition and treatment plan as described except to the extent set forth below. Ms. Obregon is currently admitted for acute diastolic heart failure and R heart failure. She is moderate to high risk due to potential for worsening cardiac status. Ms. Obregon is still requiring 5 liters oxygen. Her edema is still present. She denies chest pain but still dyspneic with movement. Exam Alert. Comfortable Heart reg Rales present Edema present I/P 1. Acute diastolic heart failure 2. R heart failure Further diagnoses and plan as above.
[2016-10-18] MEDS: Furosemide 40 MG/4 ML VIAL IVP SCH (16:34)
[2016-10-19 06:51] LABS: Calcium 9.5 mg/dL (8.6-10.8); Potassium 4.2 mEq/L (3.5-4.5)
[2016-10-19] MEDS: Furosemide 40 MG/4 ML VIAL IVP SCH ×2 (08:05→17:05)
[2016-10-19] MEDS: *HR* Dabigatran 75 MG CAPSULE PO SCH ×2 (08:05→21:21)
[2016-10-19] MEDS: Metoprolol XL (24 HR) Succ 50 MG TAB.ER.24H PO SCH (08:06)
[2016-10-19 08:46] LABS: Basophils % 0.9 %; Eosinophils # 0.1 K/mcL (0.0-0.6); Eosinophils % 2.8 %; Hematocrit 51.6 % (35.3-44.9); Hemoglobin 16.1 g/dL (11.5-15.4); Immature Granulocytes % 0.2 % (0-4); Lymphocytes # 1.4 K/mcL (0.6-4.6); Lymphocytes % 32.6 %; Mean Corpuscular HGB Conc 31.2 g/dL (31.6-35.5); Mean Corpuscular Hemoglobin 29.9 pg (28.0-33.3); Mean Corpuscular Volume 95.7 fL (83.0-100.0); Mean Platelet Volume 9.3 fL (9.4-12.4); Monocytes # 0.3 K/mcL (0.0-1.3); Monocytes % 7.5 %; Neutrophils # 2.4 K/mcL (1.6-8.9); Nucleated Red Blood Cells 0.5 /100 WBC (0); Platelet Count 206 K/mcL (140-400); Red Blood Count 5.39 M/mcL (3.82-4.97); Red Cell Distribution Width 19.1 % (11.5-14.5)
--- NOTE | 2016-10-19 10:52 | Cardiology Progress Note ---
Date of Encounter: 10/19/16 Time of Encounter: 10:30 Assessment and Plan (1) 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 Current Visit: Yes Status: Acute Patient presents with 2 week history of worsening shortness of breath and difficulty breathing. CXR upon presentation: stable, but gross cardiomegaly. BNP 2118 Repeat CXR 10/18/16: no acute CV process. TTE 10/16/16: EF 55%, RV suboptimally visualized, severe RV enlargement and hypokenesis. Flattening of IVS consistent with pressure/fluid overload. Very severe RA enlargement with bowing of intra-atrial septum into LA consistent with increased RA pressures. Moderate to severe tricuspid regurgitation. Mild [place] ---similar to TTE in 2015. Continues to exhibit volume overload upon exam--significant BLE edema, recommend SUNNY wraps to BLE today. Continues to require 5lpm nasal oxygen to keep SPO2 >90%. (on 2L at home). States symptoms have improved, not yet at baseline. Continue IV lasix to 80 mg BID for today, transition to lower dose tomorrow. Electrolytes stable. SCr continues to improve with diuresis, continue to monitor kidney function closely. I&O are not accurate as patient is incontinent. Weight unchanged, recommend utilizing standing scales. Continue strict I&O (refuses fried cath), Na/Fluid restriction diet, and daily weights. Recommend PT/OT. Of note, Pt evaluated late last year at [facility] heart failure clinic, symptom management recommended. No further testing at that time. No RHC recommended. CHF education reviewed with patient. (2) Atrial fibrillation Current Visit: Yes Status: Chronic H/o chronic afib on pradaxa. Telemetry review shows rate controlled afib. Tolerating lower dose of toprol XL. Qualifiers: Atrial fibrillation type: chronic Qualified Code(s): I48.2 - Chronic atrial fibrillation (3) Syncope Current Visit: Yes Status: Acute Son reports pt had syncopal episode, one three weeks ago and one this week that occurs with position change. Patient does not remember syncope. Describes orthostasis. B/p marginally low. Toprol decreased; patient is asymptomatic. Denies complaints overnight. 12 hour tele: avg HR 74 bpm atrial fibrillation. No pause or block noted. CT head negative. Qualifiers: Syncope type: unspecified Qualified Code(s): R55 - Syncope and collapse Discussion w patient/family: The assessment and plan as outlined above was discussed with the patient and/or family members who expressed understanding and agreement. All questions were answered. Thank you for involving us in the care of your patient. Please call with any questions. The patient will be discussed and reviewed with Dr. Mendez; changes to be made accordingly. Subjective Principal diagnosis: right sided CHF Interval history: Seen and examined. Reports symptoms are somewhat improved today; however, reports significant dyspnea, weakness with minimal exertion. Dyspnea/edema not yet at baseline. Objective Vital Signs, Last 4 Hours Temp Pulse Resp BP Pulse Ox 10/19/16 07:00 97.6 F 74 18 111/78 92 General: Conversant, No Apparent Distress HEENT: Atraumatic, Normocephaly, Mucus Membranes Moist Cardiac: Other (irregularly irregular) Lungs: Other (bibasilar diminished) Neuro: Alert and responsive Abdomen: Soft Musculoskeletal: No Chest Wall Tenderness Extremities: Other (+2-3 BLE edema to mid nicole. ) Results 10/19/16 05:55 10/19/16 05:55 Lab Results 10/19/16 10/19/16 05:55 05:55 WBC 4.3 Hgb 16.1 H Hct 51.6 H Plt Count 206 Sodium 141 Potassium 4.2 Chloride 108 Carbon Dioxide 22 BUN 36 H Creatinine 1.17 H Glucose 102 H Calcium 9.5 Active Medications Acetaminophen (Tylenol) 650 mg PO Q6HR PRN PRN Reason: Mild Pain (1-3) Stop: 04/16/17 20:23 Beclomethasone Dipropionate (Qvar 40 Mcg) 1 puff IH BIDR [facility] PRN Reason: Protocol Stop: 04/20/17 10:31 Dabigatran (Pradaxa) 75 mg PO BID [facility] Stop: 04/16/17 21:01 Last Admin: 10/19/16 08:05 Dose: 75 mg Ferrous Sulfate (Ferrous Sulfate) 325 mg PO BIDWM [facility] Stop: 04/16/17 21:01 Last Admin: 10/19/16 08:05 Dose: 325 mg Furosemide (Lasix) 80 mg IVP BIDDIURETIC IAN Stop: 04/19/17 17:01 Last Admin: 10/19/16 08:05 Dose: 80 mg Metoprolol Succinate (Toprol Xl) 25 mg PO DAILY [facility] Stop: 04/18/17 09:01 Last Admin: 10/19/16 08:06 Dose: 25 mg Naloxone HCl (Narcan) 0.4 mg IVP Q2MIN PRN PRN Reason: Opioid Reversal Stop: 04/16/17 20:23 Omeprazole (Prilosec) 20 mg PO 0630 [facility] Stop: 04/17/17 06:31 Last Admin: 10/19/16 05:48 Dose: 20 mg Sertraline HCl (Zoloft) 100 mg PO QAM [facility] Stop: 04/17/17 09:01 Last Admin: 10/19/16 08:05 Dose: 100 mg Simvastatin (Zocor) 40 mg PO QPM [facility] PRN Reason: Protocol Stop: 04/17/17 18:01 Last Admin: 10/18/16 17:34 Dose: 40 mg - Imaging and Cardiology Echo: report reviewed Other Results: 12 hour tele: avg HR=72 afib. No significant pause or event noted. - EKG Interpretation EKG results cardiology: personally reviewed - VTE Reasons for not Prescribing Prophylaxis: Not indicated-Anticoagulated or INR therapeutic Consult Discharge Plan - Plan Instructions: Heart Failure (DC), Atrial Fibrillation (DC), Acute Respiratory Distress Syndrome (DC), Acute Kidney Injury (DC), Acute Kidney Injury (GEN), Cellulitis (DC), Chronic Obstructive Pulmonary Disease (DC), Pneumonia (DC), Acute Kidney Injury, Stretch Box Tender (GEN) Referrals: Franck Andrade MD [Primary Care Provider] -
[2016-10-19] MEDS ORDERED: Bumetanide 1 MG/4 ML VIAL IVP ONE (13:37)
--- NOTE | 2016-10-19 14:09 | Internal Med Progress Note ---
<Aure Garrett - Last Filed: 10/19/16 14:06> Date of Encounter: 10/19/16 Time of Encounter: 14:07 - Assessment and plan (1) Acute exacerbation of CHF (congestive heart failure) Current Visit: Yes Status: Acute Assessment and plan: Echo similar to previous from 2014. EF 55%, severe RV enlargement and hypokinesis. Flattening of IVS consistent with pressure/fluid overload. Very severe RA enlargement with bowing of intra-atrial septum into LA consistent with increased RA pressures. Moderate to severe tricuspid regurgitation. appreciate cardiology recommendations low Na diet, I/Os (I&Os inaccurate due to patient incontinence), daily weights - use standing scale lasix 80 mg IV BID one dose of bumex given midday today PT/OT consulted to keep patient moving (safely). Qualifiers: Congestive heart failure type: diastolic Qualified Code(s): I50.33 - Acute on chronic diastolic (congestive) heart failure (2) Acute and chronic respiratory failure Current Visit: Yes Status: Acute Assessment and plan: Requires 2.5-3 L O2 at home (2.5 at rest, 3 while ambulating) Currently on 5L O2, titrate O2 to maintain sats >90% 10/18 Unable to decrease O2 at this time. Chest x-ray negative for acute process 10/19 Proventil added to medications Qualifiers: Respiratory failure complication: hypoxia Qualified Code(s): J96.21 - Acute and chronic respiratory failure with hypoxia (3) VERITO (acute kidney injury) Current Visit: Yes Status: Acute Assessment and plan: renal function improved Cr 1.58>1.7>1.56>1.33>1.17 GFR 38>35>39>47>54 continue to monitor baseline 01/05/16 Cr 1.07 GFR >60 (4) Atrial fibrillation Current Visit: Yes Status: Chronic Assessment and plan: rate controlled continue home medications of metoprolol and pradaxa Qualifiers: Atrial fibrillation type: chronic Qualified Code(s): I48.2 - Chronic atrial fibrillation (5) DVT prophylaxis Current Visit: No Status: Acute Assessment and plan: Ambulate with assistance anti-embolic stockings Patient on Pradaxa for her afib. Additional pharmacologic prophylaxis is not indicated. - Subjective Interval history: Patient feeling better than yesterday. Still with increased O2 requirements although denies shortness of breath. Still fluid overloaded. - Constitutional Vitals: Temp Pulse Resp BP Pulse Ox 97.6 F 69 17 103/79 93 10/19/16 11:00 10/19/16 11:00 10/19/16 11:00 10/19/16 11:00 10/19/16 11:00 General appearance: Present: A&O X 3, pleasant, no acute distress - Head Head exam: Present: atraumatic, normocephalic - Eye Eye exam: Present: PERRL, conjuntiva pink, sclera anicteric Pupils: Present: PERRL - Neck Neck exam general surgery: Present: supple - Respiratory Respiratory exam: Present: CTAB - Cardiovascular Cardiovascular exam: Present: irregular rhythm, +S1, +S2. Absent: systolic murmur - GI/Abdominal GI/Abdominal exam: Present: normal bowel sounds, soft. Absent: tenderness - Extremities Exam Extremities exam: Present: pedal edema (2+), warm - Neurological Exam Neurological exam: Present: alert, CN II-XII intact, oriented X3, no focal deficits - Skin Skin exam: Present: dry, intact, warm Internal Medicine: Result - Labs CBC & Chem 7: 10/19/16 05:55 10/19/16 05:55 Labs: Short CBC 10/19/16 Range/Units 05:55 WBC 4.3 (4.3-11.1) K/mcL Hgb 16.1 H (11.5-15.4) g/dL Hct 51.6 H (35.3-44.9) % Plt Count 206 (140-400) K/mcL Neutrophils # 2.4 (1.6-8.9) K/mcL BMP 10/19/16 05:55 Sodium 141 Potassium 4.2 Chloride 108 Carbon Dioxide 22 BUN 36 H Creatinine 1.17 H Glucose 102 H Calcium 9.5 - Impressions Impressions Chest X-Ray 10/18/16 10:05 IMPRESSION: No acute cardiopulmonary process. D/ / 10/18/2016 15:16:34 Vicente Murillo MD / earnold Interpreting Provider: Vicente Murillo MD - VTE Reasons for not Prescribing Prophylaxis: Not indicated-Anticoagulated or INR therapeutic Consult Discharge Plan - Plan Instructions: Heart Failure (DC), Atrial Fibrillation (DC), Acute Respiratory Distress Syndrome (DC), Acute Kidney Injury (DC), Acute Kidney Injury (GEN), Cellulitis (DC), Chronic Obstructive Pulmonary Disease (DC), Pneumonia (DC), Acute Kidney Injury, Surgical Endoscopist (GEN) Referrals: Franck Andrade MD [Primary Care Provider] - <[email or web address] A - Last Filed: 10/19/16 19:45> Date of Encounter: 10/19/16 - Assessment and plan (1) Acute and chronic respiratory failure Current Visit: Yes Status: Acute Qualifiers: Respiratory failure complication: hypoxia Qualified Code(s): J96.21 - Acute and chronic respiratory failure with hypoxia (2) Acute exacerbation of CHF (congestive heart failure) Current Visit: Yes Status: Acute Qualifiers: Congestive heart failure type: diastolic Qualified Code(s): I50.33 - Acute on chronic diastolic (congestive) heart failure (3) 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 Current Visit: Yes Status: Acute (4) Atrial fibrillation Current Visit: Yes Status: Chronic Qualifiers: Atrial fibrillation type: chronic Qualified Code(s): I48.2 - Chronic atrial fibrillation (5) Pulmonary hypertension Current Visit: No Status: Chronic (6) VERITO (acute kidney injury) Current Visit: Yes Status: Acute (7) CKD (chronic kidney disease) Current Visit: No Status: Chronic Qualifiers: Chronic kidney disease stage: stage 3 (moderate) Qualified Code(s): N18.3 - Chronic kidney disease, stage 3 (moderate) - Constitutional Vitals: Temp Pulse Resp BP Pulse Ox 97.4 F L 69 16 112/88 94 10/19/16 15:00 10/19/16 11:00 10/19/16 15:00 10/19/16 15:00 10/19/16 15:00 Internal Medicine: Result - Labs CBC & Chem 7: 10/19/16 05:55 10/19/16 05:55 Labs: Short CBC 10/19/16 Range/Units 05:55 WBC 4.3 (4.3-11.1) K/mcL Hgb 16.1 H (11.5-15.4) g/dL Hct 51.6 H (35.3-44.9) % Plt Count 206 (140-400) K/mcL Neutrophils # 2.4 (1.6-8.9) K/mcL BMP 10/19/16 05:55 Sodium 141 Potassium 4.2 Chloride 108 Carbon Dioxide 22 BUN 36 H Creatinine 1.17 H Glucose 102 H Calcium 9.5 - Attending Attestation I examined this patient and my medical decision-making was reviewed with the Resident Physician on 10/19/16. I agree with the documented findings, disposition and treatment plan as described except to the extent set forth below. Ms. Obregon is currently admitted for acute on chronic diastolic heart failure. She remains high risk due to potential for cardiac complications and medication changes. Ms. Obregon continues to have edema and hypoxemia. Still requires 5 liters. No chest pain. No GI symptoms. Exam Alert. Comfortable Heart reg with murmur Lungs with rales Edema persists I/P 1. Acute diastolic heart failure 2. R heart failure Further diagnoses and plan as above.
[2016-10-19] MEDS: Beclomethasone 40mcg MDI IH SCH ×2 (14:45→20:32)
[2016-10-20 05:25] LABS: BUN/Creatinine Ratio 32 (6-26); Blood Urea Nitrogen 32 mg/dL (7-20); Calcium 9.3 mg/dL (8.6-10.8); Carbon Dioxide 24 mEq/L (19-29); Chloride 108 mEq/L (98-109); Glucose 97 mg/dL (70-99); Osmolality,Calculated 299 (280-300); Potassium 3.6 mEq/L (3.5-4.5); Sodium 141 mEq/L (136-145); eGFR For African Americans > 60 (> 60); eGFR For Non-African Americans 54 (> 60)
[2016-10-20] MEDS: Metoprolol XL (24 HR) Succ 50 MG TAB.ER.24H PO SCH (08:31)
[2016-10-20] MEDS: Furosemide 40 MG/4 ML VIAL IVP SCH (08:34)
[2016-10-20] MEDS: *HR* Dabigatran 75 MG CAPSULE PO SCH ×2 (08:34→21:16)
--- NOTE | 2016-10-20 10:50 | Internal Med Progress Note ---
<Aure Garrett - Last Filed: 10/20/16 10:47> Date of Encounter: 10/20/16 Time of Encounter: 09:00 - Assessment and plan (1) Acute exacerbation of CHF (congestive heart failure) Current Visit: Yes Status: Acute Assessment and plan: Echo similar to previous from 2014. EF 55%, severe RV enlargement and hypokinesis. Flattening of IVS consistent with pressure/fluid overload. Very severe RA enlargement with bowing of intra-atrial septum into LA consistent with increased RA pressures. Moderate to severe tricuspid regurgitation. appreciate cardiology recommendations low Na diet, I/Os (I&Os inaccurate due to patient incontinence), daily weights - use standing scale lasix 80 mg IV BID one dose of bumex given 10/19 PT/OT consulted to keep patient moving (safely) 10/20 Transition patient to oral torsemide and oral Bumex and preparation for discharge. -Received 80 mg IV Lasix this a.m. Will give Bumex 0.5 mg by mouth at 3 PM and 40 mg of torsemide tonight. Plan for torsemide 40 mg a.m. and 20 mg p.m. starting tomorrow. Qualifiers: Congestive heart failure type: diastolic Qualified Code(s): I50.33 - Acute on chronic diastolic (congestive) heart failure (2) Acute and chronic respiratory failure Current Visit: Yes Status: Acute Assessment and plan: Requires 2.5-3 L O2 at home (2.5 at rest, 3 while ambulating) Currently on 3L O2, titrate O2 to maintain sats >90% 10/18 Chest x-ray negative for acute process 10/19 Proventil added to medications Qualifiers: Respiratory failure complication: hypoxia Qualified Code(s): J96.21 - Acute and chronic respiratory failure with hypoxia (3) VERITO (acute kidney injury) Current Visit: Yes Status: Resolved Assessment and plan: Resolved Kidney function improved to greater than baseline from December of last year baseline 01/05/16 Cr 1.07 GFR >60 (4) Atrial fibrillation Current Visit: Yes Status: Chronic Assessment and plan: rate controlled continue home medications of metoprolol and pradaxa Qualifiers: Atrial fibrillation type: chronic Qualified Code(s): I48.2 - Chronic atrial fibrillation (5) DVT prophylaxis Current Visit: No Status: Acute Assessment and plan: Ambulate with assistance Patient on Pradaxa for her afib. Additional pharmacologic prophylaxis is not indicated. - Subjective Interval history: Patient with decreased oxygen requirement from yesterday, 3 L down from 5 - her home doses 2.5 L. - Constitutional Vitals: Temp Pulse Resp BP Pulse Ox 97.4 F L 68 16 109/80 92 10/20/16 07:06 10/20/16 07:06 10/20/16 07:06 10/20/16 07:06 10/20/16 07:06 General appearance: Present: A&O X 3, pleasant, no acute distress - Head Head exam: Present: atraumatic, normocephalic - Eye Eye exam: Present: PERRL, conjuntiva pink, sclera anicteric Pupils: Present: PERRL - ENT ENT exam: Present: mucous membranes moist - Neck Neck exam general surgery: Present: supple - Respiratory Respiratory exam: Present: CTAB. Absent: wheezes - Cardiovascular Cardiovascular exam: Present: irregular rhythm, +S1, +S2 - GI/Abdominal GI/Abdominal exam: Present: normal bowel sounds, soft. Absent: tenderness - Extremities Exam Extremities exam: Present: pedal edema (Improved from yesterday, 1+), warm. Absent: tenderness - Neurological Exam Neurological exam: Present: alert, CN II-XII intact, oriented X3, no focal deficits - Skin Skin exam: Present: dry, intact, warm Internal Medicine: Result - Labs CBC & Chem 7: 10/19/16 05:55 10/20/16 04:39 Labs: BMP 10/20/16 04:39 Sodium 141 Potassium 3.6 Chloride 108 Carbon Dioxide 24 BUN 32 H Creatinine 1.00 Glucose 97 Calcium 9.3 - VTE Reasons for not Prescribing Prophylaxis: Not indicated-Anticoagulated or INR therapeutic Consult Discharge Plan - Plan Instructions: Heart Failure (DC), Atrial Fibrillation (DC), Acute Respiratory Distress Syndrome (DC), Acute Kidney Injury (DC), Acute Kidney Injury (GEN), Cellulitis (DC), Chronic Obstructive Pulmonary Disease (DC), Pneumonia (DC), Acute Kidney Injury, Estimate Clerk (GEN) Referrals: Franck Andrade MD [Primary Care Provider] - <Pepe Raygoza - Last Filed: 10/20/16 17:36> Date of Encounter: 10/20/16 - Assessment and plan (1) Acute and chronic respiratory failure Current Visit: Yes Status: Acute Qualifiers: Respiratory failure complication: hypoxia Qualified Code(s): J96.21 - Acute and chronic respiratory failure with hypoxia (2) Acute exacerbation of CHF (congestive heart failure) Current Visit: Yes Status: Acute Qualifiers: Congestive heart failure type: diastolic Qualified Code(s): I50.33 - Acute on chronic diastolic (congestive) heart failure (3) 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 Current Visit: Yes Status: Acute (4) Atrial fibrillation Current Visit: Yes Status: Chronic Qualifiers: Atrial fibrillation type: chronic Qualified Code(s): I48.2 - Chronic atrial fibrillation (5) Pulmonary hypertension Current Visit: No Status: Chronic (6) VERITO (acute kidney injury) Current Visit: Yes Status: Resolved (7) CKD (chronic kidney disease) Current Visit: No Status: Chronic Qualifiers: Chronic kidney disease stage: stage 3 (moderate) Qualified Code(s): N18.3 - Chronic kidney disease, stage 3 (moderate) - Constitutional Vitals: Temp Pulse Resp BP Pulse Ox 97.3 F L 78 16 109/79 92 10/20/16 11:06 10/20/16 11:06 10/20/16 11:09 10/20/16 11:06 10/20/16 11:09 Internal Medicine: Result - Labs CBC & Chem 7: 10/20/16 16:45 10/20/16 16:45 Labs: Short CBC 10/20/16 Range/Units 16:45 WBC 6.7 D (4.3-11.1) K/mcL Hgb 16.1 H (11.5-15.4) g/dL Hct 51.1 H (35.3-44.9) % Plt Count 191 (140-400) K/mcL Neutrophils # 5.7 (1.6-8.9) K/mcL BMP 10/20/16 10/20/16 04:39 16:45 Sodium 141 141 Potassium 3.6 3.5 Chloride 108 108 Carbon Dioxide 24 22 BUN 32 H 33 H Creatinine 1.00 1.16 H Glucose 97 124 H Calcium 9.3 9.4 Cardiac Enzymes 10/20/16 Range/Units 16:45 Troponin I 0.06 H* (0-0.03) ng/mL Liver Function 10/20/16 Range/Units 16:45 Total Bilirubin 1.5 H (0.2-1.2) mg/dL AST 40 H (5-34) Units/L ALT 32 (0-55) Units/L Alkaline Phosphatase 78 (38-126) Units/L Albumin 3.3 L (3.5-5.0) g/dL - ABG Interpretation ABG results: ABG ABG pH 7.26 pH Units (7.32-7.45) L 10/20/16 15:06 ABG pCO2 29 mmHg (35-45) L 10/20/16 15:06 ABG pO2 84 mmHg (85-104) L 10/20/16 15:06 ABG O2 Saturation 95 % (95-98) 10/20/16 15:06 - Impressions Impressions Chest X-Ray 10/20/16 14:44 IMPRESSION: 1. Mild interstitial edema. 2. Bibasilar atelectasis with trace effusions. 3. Massive cardiomegaly. D/ / 10/20/2016 15:12:26 Triny Andujra MD / [email or web address] Interpreting Provider: Triny Andujar MD Chest CTA 10/20/16 15:11 IMPRESSION: Respiratory motion somewhat limits evaluation of distal segmental and subsegmental pulmonary arteries. Strandy wispy low-attenuation noted laterally in the left main pulmonary artery. Findings may be related to motion and mixing of contrast or potentially represent chronic PE. No large central filling defect. Main pulmonary artery is normal in caliber. The right and left pulmonary arteries are prominent especially on the right which measures up to 2.9 mm. Severe enlargement of the right atrium. Small right pleural effusion and scattered ground-glass opacities. Findings may be related to edema, atelectasis, or infection. Hiatal hernia. D/ / Pamella Cabrera MD / Pamella Cabrera MD Interpreting Provider: Pamella Cabrera MD - Attending Attestation I examined this patient and my medical decision-making was reviewed with the Resident Physician on 10/20/16. I agree with the documented findings, disposition and treatment plan as described except to the extent set forth below. Ms Obregon is currently admitted for acute exac R heart failure and atrial fibrillation. She is high risk due to potential for worsening respiratory status. Ms. Obregon is sitting up in chair. She feels OK and denies pain. Her breathing is baseline. No fever or chills Exam Alert. Comfortable Heart irreg Lungs with scatter rales. I/P 1. R heart failure 2. Diastolic L heart failure Further diagnoses and plan as above.
[2016-10-20] MEDS: Beclomethasone 40mcg MDI IH SCH ×2 (11:09→21:47)
--- NOTE | 2016-10-20 11:41 | Cardiology Progress Note ---
Date of Encounter: 10/20/16 Time of Encounter: 11:50 Assessment and Plan (1) 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 Current Visit: Yes Status: Acute Patient presents with 2 week history of worsening shortness of breath and difficulty breathing. CXR upon presentation: stable, but gross cardiomegaly. BNP 2118 Repeat CXR 10/18/16: no acute CV process. TTE 10/16/16: EF 55%, RV suboptimally visualized, severe RV enlargement and hypokenesis. Flattening of IVS consistent with pressure/fluid overload. Very severe RA enlargement with bowing of intra-atrial septum into LA consistent with increased RA pressures. Moderate to severe tricuspid regurgitation. Mild SD ---similar to TTE in 2015. Continues to exhibit volume overload upon exam--BLE edema, recommend SUNNY wraps to BLE. O2 requirements decreased from 5lpm nasal oxygen to 3L after Bumex was given yesterday. (on 2L O2 at home). States symptoms have improved. Will stop Lasix and start Bumex IV 1mg BID. Will continue to follow. SCr continues to improve with diuresis, continue to monitor kidney function closely. I&O are not accurate as patient is incontinent. Weight unchanged, recommend utilizing standing scales. Continue strict I&O (refuses fried cath), Na/Fluid restriction diet, and daily weights. Recommend PT/OT. Of note, Pt evaluated late last year at [facility] heart failure clinic, symptom management recommended. No further testing at that time. No RHC recommended. CHF education reviewed with patient. (2) Atrial fibrillation Current Visit: Yes Status: Chronic H/o chronic afib on pradaxa. Telemetry review shows rate controlled afib. Tolerating lower dose of toprol XL. Qualifiers: Atrial fibrillation type: chronic Qualified Code(s): I48.2 - Chronic atrial fibrillation (3) Syncope Current Visit: Yes Status: Acute Son reports pt had syncopal episode, one three weeks ago and one this week that occurs with position change. Patient does not remember syncope. Describes orthostasis. B/p marginally low. Toprol decreased; patient is asymptomatic. Denies complaints overnight. 12 hour tele: avg HR 72 bpm atrial fibrillation. No pause or block noted. CT head negative. Qualifiers: Syncope type: unspecified Qualified Code(s): R55 - Syncope and collapse Discussion w patient/family: The assessment and plan as outlined above was discussed with the patient and/or family members who expressed understanding and agreement. All questions were answered. Thank you for involving us in the care of your patient. Please call with any questions. I will discuss all the above with Dr. Wilcox and make changes as necessary. Subjective Principal diagnosis: right sided CHF Objective Vital Signs, Last 4 Hours Temp Pulse Resp BP Pulse Ox 10/20/16 11:06 97.3 F L 78 14 109/79 94 Results 10/19/16 05:55 10/20/16 04:39 Lab Results 10/20/16 04:39 Sodium 141 Potassium 3.6 Chloride 108 Carbon Dioxide 24 BUN 32 H Creatinine 1.00 Glucose 97 Calcium 9.3 - VTE Reasons for not Prescribing Prophylaxis: Not indicated-Anticoagulated or INR therapeutic Consult Discharge Plan - Plan Instructions: Heart Failure (DC), Atrial Fibrillation (DC), Acute Respiratory Distress Syndrome (DC), Acute Kidney Injury (DC), Acute Kidney Injury (GEN), Cellulitis (DC), Chronic Obstructive Pulmonary Disease (DC), Pneumonia (DC), Acute Kidney Injury, Health Care Analyst (GEN) Referrals: Franck Andrade MD [Primary Care Provider] -
[2016-10-20] MEDS ORDERED: *HR* LORazepam 2 MG/ML VIAL ONE (14:17)
[2016-10-20] MEDS ORDERED: *HR* LORazepam 2 MG/ML VIAL IVP ONE (14:46)
[2016-10-20] MEDS ORDERED: Bumetanide 1 MG TABLET PO ONE (15:00)
[2016-10-20] MEDS ORDERED: Bumetanide 1 MG/4 ML VIAL IVP ONE (15:12)
[2016-10-20 15:14] LABS: ABG Base Excess -12.5 mEq/L (-2.0 to 3.0); ABG Oxygen Saturation 95 % (95-98); ABG PCO2 29 mmHg (35-45); ABG PH 7.26 pH Units (7.32-7.45); ABG PO2 84 mmHg (85-104); ABG TCO2 13.9 mEq/L (20-26)
[2016-10-20 15:16] LABS: Blood Gas FiO2 50 %
[2016-10-20 16:57] LABS: Basophils % 0.3 %; Eosinophils % 0.6 %; Hematocrit 51.1 % (35.3-44.9); Hemoglobin 16.1 g/dL (11.5-15.4); Immature Granulocytes % 0.5 % (0-4); Lymphocytes # 0.6 K/mcL (0.6-4.6); Lymphocytes % 8.4 %; Mean Corpuscular HGB Conc 31.5 g/dL (31.6-35.5); Mean Corpuscular Volume 95.2 fL (83.0-100.0); Monocytes # 0.4 K/mcL (0.0-1.3); Monocytes % 5.4 %; Nucleated Red Blood Cells 0.3 /100 WBC (0); Platelet Count 191 K/mcL (140-400); Red Blood Count 5.37 M/mcL (3.82-4.97); Red Cell Distribution Width 18.9 % (11.5-14.5); Segmented Neutrophils % 84.8 %
[2016-10-20 16:58] LABS: Neutrophils # 5.7 K/mcL (1.6-8.9)
[2016-10-20] MEDS ORDERED: Torsemide 20 MG TABLET PO SCH (17:00)
[2016-10-20 17:11] LABS: Albumin 3.3 g/dL (3.5-5.0); Albumin/Globulin Ratio 1.1 (1.1-2.2); Bilirubin,Total 1.5 mg/dL (0.2-1.2); Calcium 9.4 mg/dL (8.6-10.8); Magnesium 1.9 mg/dL (1.6-2.6); Phosphorous 4.2 mg/dL (2.3-4.7); Potassium 3.5 mEq/L (3.5-4.5); Total Protein 6.3 g/dL (6.0-8.3)
[2016-10-20 17:16] LABS: Ionized Calcium 1.15 mmol/L (1.15-1.35)
--- NOTE | 2016-10-20 17:51 | Event Note ---
Date of Encounter: 10/20/16 Time of Encounter: 14:30 Ms. Obregon got up to the bathroom and became acutely dyspneic. She was subsequently in rapid atrial fibrillation. Upon arrival her heart rate was 110-170 in a fib. She was breathing about 30+ times per minute and was hypoxic. Her initial BP was OK. She became unresponsive and had seizure like movements (vs. tetany and muscle spasm). Ativan 1mg IV given and changed to 100% NRB. She was diaphoretic and clammy. Shortly after Ativan given her bp was 78/50. She was moved to bed and repeat bp was 134/70. Cardizem 5mg IV given with improvement in heartrate. Pt placed on bipap and ultimately relaxed. Vitals stabilized. Lungs were clear throughout this time though she did have an S3 gallop. CXR portable showed pulmonary congestion. CTA of chest showed no acute PE. CCM 46min 1750: Pt has been stable on bipap. She is beginning to wake up and try to communicate. Family at bedside and we have begun discussing the prognosis.
[2016-10-20] MEDS: Bumetanide 1 MG/4 ML VIAL IVP SCH (17:56)
[2016-10-21 05:05] LABS: BUN/Creatinine Ratio 30 (6-26); Blood Urea Nitrogen 28 mg/dL (7-20); Calcium 9.3 mg/dL (8.6-10.8); Carbon Dioxide 25 mEq/L (19-29); Chloride 110 mEq/L (98-109); Glucose 88 mg/dL (70-99); Osmolality,Calculated 301 (280-300); Potassium 3.3 mEq/L (3.5-4.5); Sodium 143 mEq/L (136-145); eGFR For African Americans > 60 (> 60); eGFR For Non-African Americans 58 (> 60)
[2016-10-21] MEDS: Beclomethasone 40mcg MDI IH SCH ×2 (07:45→22:56)
[2016-10-21] MEDS: *HR* Dabigatran 75 MG CAPSULE PO SCH ×2 (08:33→22:23)
[2016-10-21] MEDS: Metoprolol XL (24 HR) Succ 50 MG TAB.ER.24H PO SCH (08:33)
[2016-10-21] MEDS: Bumetanide 1 MG/4 ML VIAL IVP SCH ×2 (08:35→16:32)
[2016-10-21] MEDS ORDERED: Torsemide 20 MG TABLET PO SCH (09:00)
--- NOTE | 2016-10-21 09:59 | Internal Med Progress Note ---
<Aure Garrett - Last Filed: 10/21/16 09:55> Date of Encounter: 10/21/16 Time of Encounter: 09:55 - Assessment and plan (1) Acute exacerbation of CHF (congestive heart failure) Current Visit: Yes Status: Acute Assessment and plan: Echo similar to previous from 2014. EF 55%, severe RV enlargement and hypokinesis. Flattening of IVS consistent with pressure/fluid overload. Very severe RA enlargement with bowing of intra-atrial septum into LA consistent with increased RA pressures. Moderate to severe tricuspid regurgitation. appreciate cardiology recommendations low Na diet, I/Os (I&Os inaccurate due to patient incontinence), daily weights - use standing scale bumex 1mg IV BID potassium 40 meq BID today due to AM potassium of 3.3 Qualifiers: Congestive heart failure type: diastolic Qualified Code(s): I50.33 - Acute on chronic diastolic (congestive) heart failure (2) Acute and chronic respiratory failure Current Visit: Yes Status: Acute Assessment and plan: Requires 2.5-3 L O2 at home (2.5 at rest, 3 while ambulating) Currently on 4-5L O2, titrate O2 to maintain sats >90% 10/18 Chest x-ray negative for acute process 10/19 Proventil added to medications Qualifiers: Respiratory failure complication: hypoxia Qualified Code(s): J96.21 - Acute and chronic respiratory failure with hypoxia (3) VERITO (acute kidney injury) Current Visit: Yes Status: Resolved Assessment and plan: Resolved Kidney function improved to greater than baseline from December of last year baseline 01/05/16 Cr 1.07 GFR >60 (4) Atrial fibrillation Current Visit: Yes Status: Chronic Assessment and plan: rate controlled continue home medications of metoprolol and pradaxa Qualifiers: Atrial fibrillation type: chronic Qualified Code(s): I48.2 - Chronic atrial fibrillation (5) DVT prophylaxis Current Visit: No Status: Acute Assessment and plan: Ambulate with assistance Patient on Pradaxa for her afib. Additional pharmacologic prophylaxis is not indicated. - Subjective Interval history: Patient seen and examined. Looks much improved from yesterday afternoon when she had seizure activity after going to the restroom, most likely due to hypoxia. CTA ruled out PE. ABG showed a metabolic acidosis, although the patient does not have an obvious reason to have a metabolic acidosis. Serial troponins were elevated to 0.11. Patient was on BiPAP throughout the night until this morning. She is currently on 4-5 L by nasal cannula and satting in the low 90s to high 80s. She tends to put a washcloth over her mouth and nose and says that this "helps her breathe." On further questioning she states that she forgets to breathe and breathe through her mouth and this both reminds her to breathe and helps her remember to breathe through her nose. - Constitutional Vitals: Temp Pulse Resp BP Pulse Ox 97.9 F 71 16 111/75 92 10/21/16 07:00 10/21/16 07:00 10/21/16 07:47 10/21/16 07:00 10/21/16 07:47 General appearance: Present: A&O X 3, pleasant, no acute distress - Head Head exam: Present: atraumatic, normocephalic - Eye Eye exam: Present: PERRL, conjuntiva pink, sclera anicteric Pupils: Present: PERRL - Neck Neck exam general surgery: Present: supple - Respiratory Respiratory exam: Present: CTAB - Cardiovascular Cardiovascular exam: Present: irregular rhythm, +S1, +S2 - GI/Abdominal GI/Abdominal exam: Present: normal bowel sounds, soft, no peritoneal signs. Absent: tenderness - Extremities Exam Extremities exam: Present: pedal edema (1+), warm. Absent: tenderness - Neurological Exam Neurological exam: Present: alert, CN II-XII intact, oriented X3, no focal deficits - Skin Skin exam: Present: dry, intact, warm Internal Medicine: Result - Labs CBC & Chem 7: 10/20/16 16:45 10/21/16 04:32 Labs: Short CBC 10/20/16 Range/Units 16:45 WBC 6.7 D (4.3-11.1) K/mcL Hgb 16.1 H (11.5-15.4) g/dL Hct 51.1 H (35.3-44.9) % Plt Count 191 (140-400) K/mcL Neutrophils # 5.7 (1.6-8.9) K/mcL BMP 10/20/16 10/21/16 16:45 04:32 Sodium 141 143 Potassium 3.5 3.3 L Chloride 108 110 H Carbon Dioxide 22 25 BUN 33 H 28 H Creatinine 1.16 H 0.93 Glucose 124 H 88 Calcium 9.4 9.3 Cardiac Enzymes 10/20/16 10/20/16 10/21/16 Range/Units 16:45 22:30 04:32 Troponin I 0.06 H* 0.11 H* 0.11 H* (0-0.03) ng/mL Liver Function 10/20/16 Range/Units 16:45 Total Bilirubin 1.5 H (0.2-1.2) mg/dL AST 40 H (5-34) Units/L ALT 32 (0-55) Units/L Alkaline Phosphatase 78 (38-126) Units/L Albumin 3.3 L (3.5-5.0) g/dL - ABG Interpretation ABG results: ABG ABG pH 7.26 pH Units (7.32-7.45) L 10/20/16 15:06 ABG pCO2 29 mmHg (35-45) L 10/20/16 15:06 ABG pO2 84 mmHg (85-104) L 10/20/16 15:06 ABG O2 Saturation 95 % (95-98) 10/20/16 15:06 - Impressions Impressions Chest X-Ray 10/20/16 14:44 IMPRESSION: 1. Mild interstitial edema. 2. Bibasilar atelectasis with trace effusions. 3. Massive cardiomegaly. D/ / 10/20/2016 15:12:26 Triny Andujar MD / [email or web address] Interpreting Provider: Triny Andujar MD Chest CTA 10/20/16 15:11 IMPRESSION: Respiratory motion somewhat limits evaluation of distal segmental and subsegmental pulmonary arteries. Strandy wispy low-attenuation noted laterally in the left main pulmonary artery. Findings may be related to motion and mixing of contrast or potentially represent chronic PE. No large central filling defect. Main pulmonary artery is normal in caliber. The right and left pulmonary arteries are prominent especially on the right which measures up to 2.9 mm. Severe enlargement of the right atrium. Small right pleural effusion and scattered ground-glass opacities. Findings may be related to edema, atelectasis, or infection. Hiatal hernia. D/ / Pamella Cabrera MD / Pamella Cabrera MD Interpreting Provider: Pamella Cabrera MD - VTE Reasons for not Prescribing Prophylaxis: Not indicated-Anticoagulated or INR therapeutic Consult Discharge Plan - Plan Instructions: Heart Failure (DC), Atrial Fibrillation (DC), Acute Respiratory Distress Syndrome (DC), Acute Kidney Injury (DC), Acute Kidney Injury (GEN), Cellulitis (DC), Chronic Obstructive Pulmonary Disease (DC), Pneumonia (DC), Acute Kidney Injury, Hand Suture Winder (GEN) Referrals: Franck Andrade MD [Primary Care Provider] - <Pepe Raygoza - Last Filed: 10/21/16 14:05> Date of Encounter: 10/21/16 - Assessment and plan (1) Acute and chronic respiratory failure Current Visit: Yes Status: Acute Qualifiers: Respiratory failure complication: hypoxia Qualified Code(s): J96.21 - Acute and chronic respiratory failure with hypoxia (2) Acute exacerbation of CHF (congestive heart failure) Current Visit: Yes Status: Acute Qualifiers: Congestive heart failure type: diastolic Qualified Code(s): I50.33 - Acute on chronic diastolic (congestive) heart failure (3) 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 Current Visit: Yes Status: Acute Assessment and plan: R heart failure due to pulmonary hypertension. (4) Atrial fibrillation Current Visit: Yes Status: Chronic Qualifiers: Atrial fibrillation type: chronic Qualified Code(s): I48.2 - Chronic atrial fibrillation (5) Pulmonary hypertension Current Visit: No Status: Chronic (6) VERITO (acute kidney injury) Current Visit: Yes Status: Resolved (7) CKD (chronic kidney disease) Current Visit: Yes Status: Chronic Assessment and plan: Monitor renal function. Qualifiers: Chronic kidney disease stage: stage 3 (moderate) Qualified Code(s): N18.3 - Chronic kidney disease, stage 3 (moderate) - Constitutional Vitals: Temp Pulse Resp BP Pulse Ox 97.9 F 71 16 111/75 92 10/21/16 07:00 10/21/16 07:00 10/21/16 07:47 10/21/16 07:00 10/21/16 07:47 Internal Medicine: Result - Labs CBC & Chem 7: 10/20/16 16:45 10/21/16 04:32 Labs: Short CBC 10/20/16 Range/Units 16:45 WBC 6.7 D (4.3-11.1) K/mcL Hgb 16.1 H (11.5-15.4) g/dL Hct 51.1 H (35.3-44.9) % Plt Count 191 (140-400) K/mcL Neutrophils # 5.7 (1.6-8.9) K/mcL BMP 10/20/16 10/21/16 16:45 04:32 Sodium 141 143 Potassium 3.5 3.3 L Chloride 108 110 H Carbon Dioxide 22 25 BUN 33 H 28 H Creatinine 1.16 H 0.93 Glucose 124 H 88 Calcium 9.4 9.3 Cardiac Enzymes 10/20/16 10/20/16 10/21/16 Range/Units 16:45 22:30 04:32 Troponin I 0.06 H* 0.11 H* 0.11 H* (0-0.03) ng/mL Liver Function 10/20/16 Range/Units 16:45 Total Bilirubin 1.5 H (0.2-1.2) mg/dL AST 40 H (5-34) Units/L ALT 32 (0-55) Units/L Alkaline Phosphatase 78 (38-126) Units/L Albumin 3.3 L (3.5-5.0) g/dL - ABG Interpretation ABG results: ABG ABG pH 7.26 pH Units (7.32-7.45) L 10/20/16 15:06 ABG pCO2 29 mmHg (35-45) L 10/20/16 15:06 ABG pO2 84 mmHg (85-104) L 10/20/16 15:06 ABG O2 Saturation 95 % (95-98) 10/20/16 15:06 - Impressions Impressions Chest X-Ray 10/20/16 14:44 IMPRESSION: 1. Mild interstitial edema. 2. Bibasilar atelectasis with trace effusions. 3. Massive cardiomegaly. D/ / 10/20/2016 15:12:26 Triny Andujar MD / ignacia Interpreting Provider: Triny Andujar MD Chest CTA 10/20/16 15:11 IMPRESSION: Respiratory motion somewhat limits evaluation of distal segmental and subsegmental pulmonary arteries. Strandy wispy low-attenuation noted laterally in the left main pulmonary artery. Findings may be related to motion and mixing of contrast or potentially represent chronic PE. No large central filling defect. Main pulmonary artery is normal in caliber. The right and left pulmonary arteries are prominent especially on the right which measures up to 2.9 mm. Severe enlargement of the right atrium. Small right pleural effusion and scattered ground-glass opacities. Findings may be related to edema, atelectasis, or infection. Hiatal hernia. D/ / Pamella Cabrera MD / Pamella Cabrera MD Interpreting Provider: Pamella Cabrera MD - Attending Attestation I examined this patient and my medical decision-making was reviewed with the Resident Physician on 10/21/16. I agree with the documented findings, disposition and treatment plan as described except to the extent set forth below. Ms. Obregon is currently admitted for acute exac L diastolic heart failure and R systolic heart failure. She remains high risk due to potential for worsening respiratory status. Ms. Obregon is doing better since episode yesterday. She is up in chair and comfortable. Oxygen back to 5 liters. No CP. No cough. Exam Alert. Comfortable Heart with murmur No wheeze I/P 1. Acute on chronic R heart failure 2. Severe pulm hypertension 3. A fib Further diagnoses and plan as above.
--- NOTE | 2016-10-21 10:29 | Cardiology Progress Note ---
Date of Encounter: 10/21/16 Time of Encounter: 10:00 Assessment and Plan (1) 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 Current Visit: Yes Status: Acute Patient presents with 2 week history of worsening shortness of breath and difficulty breathing. CXR upon presentation: stable, but gross cardiomegaly. BNP 2118 Repeat CXR 10/18/16: no acute CV process. TTE 10/16/16: EF 55%, RV suboptimally visualized, severe RV enlargement and hypokenesis. Flattening of IVS consistent with pressure/fluid overload. Very severe RA enlargement with bowing of intra-atrial septum into LA consistent with increased RA pressures. Moderate to severe tricuspid regurgitation. Mild [place] ---similar to TTE in 2015. BLE edema, dyspnea have improved. Weight is now down 1.2 kg. Recommend SUNNY wraps to BLE. O2 requirements improved, on 4.5 liters n/c. (on 2L O2 at home). Reviewed events of yesterday afternoon--patient became dyspneic/hypoxic when ambulating to bathroom, possible seizure. CXR demonstrated bilateral atelectasis with trace effusions. Given poor prognosis due to PH and right sided -heart failure, patient/family agreed to palliative care consultation. She tells me she wants no further testing or invasive work-up/treatment for her PH. Continue IV bumex--transition to po by discharge. SCr continues to improve with diuresis, continue to monitor kidney function closely. Hypokalemia replaced. I&O are not accurate as patient is incontinent. Continue strict I&O (refuses fried cath), Na/Fluid restriction diet, and daily weights. Recommend PT/OT. Of note, Pt evaluated late last year at [facility] heart failure clinic, symptom management recommended. No further testing at that time. No RHC recommended. CHF education reviewed with patient. Discussed with Primary team; Palliative Care consulted. Cardiology will sign-off , will arrange for appt in the outpatient setting in 1-2 weeks after d/c. (2) Atrial fibrillation Current Visit: Yes Status: Chronic H/o chronic afib on pradaxa. Telemetry review shows rate controlled afib. Tolerating lower dose of toprol XL. Qualifiers: Atrial fibrillation type: chronic Qualified Code(s): I48.2 - Chronic atrial fibrillation (3) Syncope Current Visit: Yes Status: Acute Son reports pt had syncopal episode, one three weeks ago and one this week that occurs with position change. Patient does not remember syncope. Describes orthostasis. B/p marginally low. Toprol decreased; patient is asymptomatic. Denies complaints overnight. 12 hour tele: avg HR 72 bpm atrial fibrillation. No pause or block noted. CT head negative. Qualifiers: Syncope type: unspecified Qualified Code(s): R55 - Syncope and collapse Discussion w patient/family: The assessment and plan as outlined above was discussed with the patient and/or family members who expressed understanding and agreement. All questions were answered. Thank you for involving us in the care of your patient. Please call with any questions. The patient will be discussed and reviewed with Dr. Mendez; Cardiology will sign- off, please call with questions. Subjective Principal diagnosis: right sided CHF Interval history: Seen and examined. Up to bedside chair. Hypoxic event yesterday while walking to bathroom, memory is foggy on events. Upon exam, dyspnea is stable. She notes edema is now at baseline. Objective Vital Signs, Last 4 Hours Temp Pulse Resp BP Pulse Ox 10/21/16 07:47 16 92 10/21/16 07:00 97.9 F 71 15 111/75 90 General: Conversant, No Apparent Distress HEENT: Atraumatic, Normocephaly, Mucus Membranes Moist Cardiac: Other (irregularly irregular, 2/3) Lungs: Other (Diminshed bibasilar, few rales) Neuro: Alert and responsive Abdomen: Soft Skin: No rashes noted on visualized skin Musculoskeletal: No Chest Wall Tenderness Extremities: Other (+2 BLE edema to knees. ) Results 10/20/16 16:45 10/21/16 04:32 Lab Results 10/20/16 10/20/16 10/20/16 16:45 16:45 16:45 WBC 6.7 D Hgb 16.1 H Hct 51.1 H Plt Count 191 Sodium 141 Potassium 3.5 Chloride 108 Carbon Dioxide 22 BUN 33 H Creatinine 1.16 H Glucose 124 H Calcium 9.4 Magnesium 1.9 Total Bilirubin 1.5 H AST 40 H ALT 32 Alkaline Phosphatase 78 Troponin I 0.06 H* 10/20/16 10/21/16 10/21/16 22:30 04:32 04:32 WBC Hgb Hct Plt Count Sodium 143 Potassium 3.3 L Chloride 110 H Carbon Dioxide 25 BUN 28 H Creatinine 0.93 Glucose 88 Calcium 9.3 Magnesium Total Bilirubin AST ALT Alkaline Phosphatase Troponin I 0.11 H* 0.11 H* Active Medications Acetaminophen (Tylenol) 650 mg PO Q6HR PRN PRN Reason: Mild Pain (1-3) Stop: 04/16/17 20:23 Beclomethasone Dipropionate (Qvar 40 Mcg) 1 puff IH BIDR IAN PRN Reason: Protocol Stop: 04/20/17 10:31 Last Admin: 10/21/16 07:45 Dose: 1 puff Bumetanide (Bumex) 1 mg IVP BIDDIURETIC [facility] Stop: 04/21/17 17:01 Last Admin: 10/21/16 08:35 Dose: 1 mg Dabigatran (Pradaxa) 75 mg PO BID [facility] Stop: 04/16/17 21:01 Last Admin: 10/21/16 08:33 Dose: 75 mg Ferrous Sulfate (Ferrous Sulfate) 325 mg PO BIDWM [facility] Stop: 04/16/17 21:01 Last Admin: 10/21/16 08:33 Dose: 325 mg Metoprolol Succinate (Toprol Xl) 25 mg PO DAILY [facility] Stop: 04/18/17 09:01 Last Admin: 10/21/16 08:33 Dose: 25 mg Naloxone HCl (Narcan) 0.4 mg IVP Q2MIN PRN PRN Reason: Opioid Reversal Stop: 04/16/17 20:23 Omeprazole (Prilosec) 20 mg PO 0630 [facility] Stop: 04/17/17 06:31 Last Admin: 10/21/16 06:25 Dose: 20 mg Potassium Chloride (Potassium Chloride) 40 meq PO BID [facility] Stop: 10/21/16 21:01 Last Admin: 10/21/16 08:33 Dose: 40 meq Sertraline HCl (Zoloft) 100 mg PO QAM [facility] Stop: 04/17/17 09:01 Last Admin: 10/21/16 08:33 Dose: 100 mg Simvastatin (Zocor) 40 mg PO QPM IAN PRN Reason: Protocol Stop: 04/17/17 18:01 Last Admin: 10/20/16 21:16 Dose: 40 mg - Imaging and Cardiology Chest Xray: report reviewed Echo: report reviewed Other Results: 12 hour tele: avg HR=73, no significant event noted. - EKG Interpretation EKG results cardiology: personally reviewed - VTE Reasons for not Prescribing Prophylaxis: Not indicated-Anticoagulated or INR therapeutic Consult Discharge Plan - Plan Instructions: Heart Failure (DC), Atrial Fibrillation (DC), Acute Respiratory Distress Syndrome (DC), Acute Kidney Injury (DC), Acute Kidney Injury (GEN), Cellulitis (DC), Chronic Obstructive Pulmonary Disease (DC), Pneumonia (DC), Acute Kidney Injury, Heavy Truck Mechanic (GEN) Referrals: Franck Andrade MD [Primary Care Provider] -
[2016-10-21] MEDS ORDERED: Ipratropium/Albuterol Neb 3 ML IH PRN (18:07)
[2016-10-22 04:43] LABS: BUN/Creatinine Ratio 27 (6-26); Blood Urea Nitrogen 26 mg/dL (7-20); Calcium 9.5 mg/dL (8.6-10.8); Carbon Dioxide 23 mEq/L (19-29); Chloride 109 mEq/L (98-109); Glucose 89 mg/dL (70-99); Osmolality,Calculated 298 (280-300); Potassium 3.9 mEq/L (3.5-4.5); Sodium 142 mEq/L (136-145); eGFR For African Americans > 60 (> 60); eGFR For Non-African Americans 57 (> 60)
[2016-10-22] MEDS: Beclomethasone 40mcg MDI IH SCH ×2 (08:17→23:06)
[2016-10-22] MEDS: Metoprolol XL (24 HR) Succ 50 MG TAB.ER.24H PO SCH (08:58)
[2016-10-22] MEDS: *HR* Dabigatran 75 MG CAPSULE PO SCH (08:58)
[2016-10-22] MEDS: Bumetanide 1 MG/4 ML VIAL IVP SCH ×2 (08:59→17:27)
--- NOTE | 2016-10-22 09:10 | Internal Med Progress Note ---
<Arue Garrett - Last Filed: 10/22/16 09:07> Date of Encounter: 10/22/16 Time of Encounter: 09:07 - Assessment and plan (1) Acute exacerbation of CHF (congestive heart failure) Current Visit: Yes Status: Acute Assessment and plan: Echo similar to previous from 2014. EF 55%, severe RV enlargement and hypokinesis. Flattening of IVS consistent with pressure/fluid overload. Very severe RA enlargement with bowing of intra-atrial septum into LA consistent with increased RA pressures. Moderate to severe tricuspid regurgitation. appreciate cardiology recommendations low Na diet, I/Os (I&Os inaccurate due to patient incontinence), daily weights - use standing scale bumex 1mg IV BID palliative consult, appreciate recommendations Qualifiers: Congestive heart failure type: diastolic Qualified Code(s): I50.33 - Acute on chronic diastolic (congestive) heart failure (2) Acute and chronic respiratory failure Current Visit: Yes Status: Acute Assessment and plan: Requires 2.5-3 L O2 at home (2.5 at rest, 3 while ambulating) Currently on 4-5L O2, titrate O2 to maintain sats >90% 10/18 Chest x-ray negative for acute process 10/19 Proventil added to medications Qualifiers: Respiratory failure complication: hypoxia Qualified Code(s): J96.21 - Acute and chronic respiratory failure with hypoxia (3) VERITO (acute kidney injury) Current Visit: Yes Status: Resolved Assessment and plan: Resolved Kidney function improved to greater than baseline from December of last year baseline 01/05/16 Cr 1.07 GFR >60 (4) Atrial fibrillation Current Visit: Yes Status: Chronic Assessment and plan: rate controlled continue home medications of metoprolol and pradaxa Qualifiers: Atrial fibrillation type: chronic Qualified Code(s): I48.2 - Chronic atrial fibrillation (5) DVT prophylaxis Current Visit: No Status: Acute Assessment and plan: Ambulate with assistance Patient on Pradaxa for her afib. Additional pharmacologic prophylaxis is not indicated. - Subjective Interval history: Patient seen and examined. Looks like she feels down today. Has knee pain from her legs being wrapped. They have been unwrapped. - Constitutional Vitals: Temp Pulse Resp BP Pulse Ox 97.1 F L 88 18 112/88 100 10/22/16 08:00 10/22/16 08:00 10/22/16 08:18 10/22/16 08:00 10/22/16 08:18 General appearance: Present: A&O X 3, pleasant, no acute distress - Head Head exam: Present: atraumatic, normocephalic - Eye Eye exam: Present: PERRL, conjuntiva pink, sclera anicteric Pupils: Present: PERRL - Neck Neck exam general surgery: Present: supple - Respiratory Respiratory exam: Present: CTAB - Cardiovascular Cardiovascular exam: Present: irregular rhythm, +S1, +S2 - GI/Abdominal GI/Abdominal exam: Present: normal bowel sounds, soft. Absent: tenderness - Extremities Exam Additional comments: Fluid overload of the knee and thigh area (1-2+ pitting edema), but calves are trace edema due to wrapping which has been recently removed - Neurological Exam Neurological exam: Present: alert, oriented X3 - Skin Skin exam: Present: dry, intact, warm Internal Medicine: Result - Labs CBC & Chem 7: 10/20/16 16:45 10/22/16 03:43 Labs: BMP 10/22/16 03:43 Sodium 142 Potassium 3.9 Chloride 109 Carbon Dioxide 23 BUN 26 H Creatinine 0.95 Glucose 89 Calcium 9.5 - ABG Interpretation ABG results: ABG ABG pH 7.26 pH Units (7.32-7.45) L 10/20/16 15:06 ABG pCO2 29 mmHg (35-45) L 10/20/16 15:06 ABG pO2 84 mmHg (85-104) L 10/20/16 15:06 ABG O2 Saturation 95 % (95-98) 10/20/16 15:06 - VTE Reasons for not Prescribing Prophylaxis: Not indicated-Anticoagulated or INR therapeutic Consult Discharge Plan - Plan Instructions: Heart Failure (DC), Atrial Fibrillation (DC), Acute Respiratory Distress Syndrome (DC), Acute Kidney Injury (DC), Acute Kidney Injury (GEN), Cellulitis (DC), Chronic Obstructive Pulmonary Disease (DC), Pneumonia (DC), Acute Kidney Injury, Associate Merchandise Planner (GEN) Referrals: Franck Andrade MD [Primary Care Provider] - <Pepe Raygoza - Last Filed: 10/22/16 16:20> Date of Encounter: 10/22/16 - Assessment and plan (1) Acute and chronic respiratory failure Current Visit: Yes Status: Acute Qualifiers: Respiratory failure complication: hypoxia Qualified Code(s): J96.21 - Acute and chronic respiratory failure with hypoxia (2) Acute exacerbation of CHF (congestive heart failure) Current Visit: Yes Status: Acute Qualifiers: Congestive heart failure type: diastolic Qualified Code(s): I50.33 - Acute on chronic diastolic (congestive) heart failure (3) 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 Current Visit: Yes Status: Acute (4) Atrial fibrillation Current Visit: Yes Status: Chronic Qualifiers: Atrial fibrillation type: chronic Qualified Code(s): I48.2 - Chronic atrial fibrillation (5) Pulmonary hypertension Current Visit: No Status: Chronic (6) VERITO (acute kidney injury) Current Visit: Yes Status: Resolved (7) CKD (chronic kidney disease) Current Visit: Yes Status: Chronic Qualifiers: Chronic kidney disease stage: stage 3 (moderate) Qualified Code(s): N18.3 - Chronic kidney disease, stage 3 (moderate) - Constitutional Vitals: Temp Pulse Resp BP Pulse Ox 97.1 F L 88 18 112/88 100 10/22/16 08:00 10/22/16 08:00 10/22/16 08:18 10/22/16 08:00 10/22/16 08:18 Internal Medicine: Result - Labs CBC & Chem 7: 10/20/16 16:45 10/22/16 03:43 Labs: BMP 10/22/16 03:43 Sodium 142 Potassium 3.9 Chloride 109 Carbon Dioxide 23 BUN 26 H Creatinine 0.95 Glucose 89 Calcium 9.5 - ABG Interpretation ABG results: ABG ABG pH 7.26 pH Units (7.32-7.45) L 10/20/16 15:06 ABG pCO2 29 mmHg (35-45) L 10/20/16 15:06 ABG pO2 84 mmHg (85-104) L 10/20/16 15:06 ABG O2 Saturation 95 % (95-98) 10/20/16 15:06 - Attending Attestation I examined this patient and my medical decision-making was reviewed with the Resident Physician on 10/22/16. I agree with the documented findings, disposition and treatment plan as described except to the extent set forth below. Ms. Obregon is currently admitted for acute hypoxic resp failure due to pulm HTN and R heart failure. She is moderate to high risk due to potential for worsening respiratory and cardiac status. Ms. Obregon is feeling OK at this time. She is on 4 liters oxygen. No CP. Dyspnea appears to be stable today. Exam Alert. Comfortable Heart irreg - not tachy Lungs no wheeze Edema about the same I/P 1. Hypoxic resp failure 2. Severe pulmonary hypertension 3. R heart failure Further diagnoses and plan as above. Script written for hospital bed. Pt requires the head of bed to be elevated more than 30 degrees most of the time due to CHF. This is unable to be done with a regular bed.
--- NOTE | 2016-10-22 09:38 | Palliative - Consult Note ---
<RogersKeagan - Last Filed: 10/22/16 15:13> Date of Encounter: 10/22/16 Time of Encounter: 09:36 - Assessment and Plan (1) Goals of care, counseling/discussion Current Visit: Yes Status: Acute Assessment and plan: Discussed at length about code status with patient and her daughter and son at bedside They initially had her as FULL CODE, but will have agreed to change her to DNR- CCA/DNI Would likely benefit from rehab or home health upon discharge, appreciate PT/OT/ SS consult (2) Acute and chronic respiratory failure Current Visit: Yes Status: Acute Assessment and plan: Patient has been on 4 L this morning, will try to wean back to home dose of 2.5 L oxygen Continue breathing treatments per primary team Qualifiers: Respiratory failure complication: hypoxia Qualified Code(s): J96.21 - Acute and chronic respiratory failure with hypoxia (3) Right knee pain Current Visit: Yes Status: Chronic Assessment and plan: Likely related to her arthritis Will start her on PRN [place] 5 mg q4hr and PRN Colace if gets constipation Qualifiers: Qualified Code(s): M25.561 - Pain in right knee Palliative-CN HPI - Data of Consult Patient: new to practice Consult date: 10/22/16 Requesting Physician: Pepe Raygoza DO Primary Care Provider: Franck Andrade MD - Consult Narrative Palliative Care/Comfort Measures: Palliative care Reason for consult: discuss goals of care, code status History of present illness: Ms. Obregon is a 76 year old female who presents with shortness of breath. She has history of AFib on Pradaxa and has CHF and known severe pulmonary hypertension. Cardiology has signed off as patient does not want anymore aggressive treatment including RHC. Palliative has been consulted to discuss with patient and her family about goals of care and code status. Patient is alert and oriented x3 and her daughter Eliza and son/PODre Calderon are present at bedside. Patient normally lives with her daughter who states that her breathing has gotten worse over the past several months. She is doing better with her breathing today but states that her right knee is bothering her, which is chronic for her. She does have COPD and is on 2.5 L at home but is requiring 4 L presently. Denies any nausea, vomiting, diarrhea, or constipation. CC: Pepe Raygoza DO Past Med Surg Social Fam HX - Past Medical History Medical history: atrial fibrillation, CHF, COPD, GERD, hyperlipidemia, hypertension, renal disease, other (right sided heart failure, pulmonary hypertension, ) Psychiatric history: anxiety, depression - Past Surgical History Surgical History: no surgical history - Social History Smoking Status: Never smoker Smokeless Tobacco Status: No Alcohol use: none Drug use: none - Family History Mother Adopted: No Family Member Ethnicity: Non- Living Status: Hx Family Cancer: Yes (unknown) Father Hx Family Cardiac Disorders: Yes (HTN, cardiac disease) Hx Family Endocrine Disorder: Yes (Diabetes) Medications and Allergies Dabigatran [Pradaxa] 150 mg PO BID 07/06/15 [History] Ferrous Sulfate 325 mg PO BID 07/06/15 [History] Fluticasone Propionate [Flovent Hfa] 1 puff IH BID 07/06/15 [History] Omeprazole [PriLOSEC] 40 mg PO QAM 07/06/15 [History] Sertraline [Zoloft] 100 mg PO QAM 07/06/15 [History] Simvastatin [Zocor] 40 mg PO QPM 07/06/15 [History] Metoprolol XL (24 HR) Succ [Toprol Xl] 50 mg PO DAILY #30 tab.er.24h 07/12/15 [ Rx] Albuterol Sulfate [Proair Hfa] 2 puff IH Q4-6H PRN 10/15/16 [History] Torsemide [Demadex] 20 mg PO QPM 10/15/16 [History] Torsemide [Demadex] 40 mg PO QAM 10/15/16 [History] Allergies No Known Allergies Allergy (Verified 07/06/15 17:22) - Constitutional Constitutional ROS PAL: no fatigue, no fever(s) - Cardiovascular Cardiovascular ROS: dyspnea on exertion, edema, irregular heart rhythm, leg edema, no chest pain - Respiratory Respiratory: cough, dyspnea on exertion, wheezing - Gastrointestinal Gastrointestinal: no diarrhea, no hematochezia, no melena, no nausea, no vomiting - Musculoskeletal Musculoskeletal ROS IM: arthralgias (right knee) - Neurological Neurological ROS: weakness, no headache(s) Palliative Care-Exam - Constitutional Vitals: Temp Pulse Resp BP Pulse Ox 97.1 F L 88 18 112/88 100 10/22/16 08:00 10/22/16 08:00 10/22/16 08:18 10/22/16 08:00 10/22/16 08:18 General appearance: Present: cooperative, obese - Head Head Exam: Present: atraumatic, normal inspection, normocephalic - Eye Eye exam: Present: EOMI, PERRL, sclera anicteric - Respiratory Respiratory exam: Present: rales - Cardiovascular Cardiovascular exam: Present: irregular rhythm, +S1, +S2 - GI/Abdominal Exam GI/Abdominal exam: Present: soft. Absent: tenderness - Rectal Rectal exam: Present: deferred - Extremities Exam Extremities exam: Present: pedal edema, tenderness (at right knee) - Neurological Exam Neurological exam: Present: alert, CN II-XII intact, oriented X3, no focal deficits. Absent: facial droop, speech deficit Internal Medicine - CN: Reslt - Labs CBC & Chem 7: 10/20/16 16:45 10/22/16 03:43 Labs: BMP 10/22/16 03:43 Sodium 142 Potassium 3.9 Chloride 109 Carbon Dioxide 23 BUN 26 H Creatinine 0.95 Glucose 89 Calcium 9.5 - ABG Interpretation ABG results: ABG ABG pH 7.26 pH Units (7.32-7.45) L 10/20/16 15:06 ABG pCO2 29 mmHg (35-45) L 10/20/16 15:06 ABG pO2 84 mmHg (85-104) L 10/20/16 15:06 ABG O2 Saturation 95 % (95-98) 10/20/16 15:06 Consult Discharge Plan - Plan Instructions: Heart Failure (DC), Atrial Fibrillation (DC), Acute Respiratory Distress Syndrome (DC), Acute Kidney Injury (DC), Acute Kidney Injury (GEN), Cellulitis (DC), Chronic Obstructive Pulmonary Disease (DC), Pneumonia (DC), Acute Kidney Injury, Poker Room Manager (GEN) Referrals: Franck Andrade MD [Primary Care Provider] - Palliative Quality Palliative Quality: Screen for Code Status: Yes, Screen for Goals of Care: Yes, Screen for Pain: Yes, If Pain Regimen Started, Initiate Bowel Regimen: NA, Screen for Nausea/Vomitting: Yes <Kashif Chávez - Last Filed: 10/22/16 15:58> Date of Encounter: 10/22/16 Palliative-CN HPI - Data of Consult Requesting Physician: Pepe Raygoza DO Primary Care Provider: Franck Andrade MD - Consult Narrative History of present illness: Ms. Obregon is a 76 year old female CC: Pepe Raygoza DO Palliative Care-Exam - Constitutional Vitals: Temp Pulse Resp BP Pulse Ox 97.1 F L 88 18 112/88 100 10/22/16 08:00 10/22/16 08:00 10/22/16 08:18 10/22/16 08:00 10/22/16 08:18 Internal Medicine - CN: Reslt - Labs CBC & Chem 7: 10/20/16 16:45 10/22/16 03:43 Labs: BMP 10/22/16 03:43 Sodium 142 Potassium 3.9 Chloride 109 Carbon Dioxide 23 BUN 26 H Creatinine 0.95 Glucose 89 Calcium 9.5 - ABG Interpretation ABG results: ABG ABG pH 7.26 pH Units (7.32-7.45) L 10/20/16 15:06 ABG pCO2 29 mmHg (35-45) L 10/20/16 15:06 ABG pO2 84 mmHg (85-104) L 10/20/16 15:06 ABG O2 Saturation 95 % (95-98) 10/20/16 15:06 - Attending Attestation I examined this patient and my medical decision-making was reviewed with the / Resident Physician. I agree with the documented findings, disposition and treatment plan as described except to the extent set forth below. Palliative Quality Code Status: 10/22/16 15:13 CODE [Resuscitation Status: Active] [RES] Routine Comment: Resuscitation Status: [id number]
[2016-10-22] MEDS ORDERED: *HR* HYDROcodone/Acet 5/325 mg TABLET PO PRN (15:13)
[2016-10-22] MEDS: *HR* Dabigatran 150 MG CAPSULE PO SCH (20:31)
[2016-10-22] MEDS: Acetaminophen 325 MG TABLET PO PRN (21:16)
--- NOTE | 2016-10-22 21:30 | Electrocardiograph Report ---
[place] [id number] Test Date: 2016-10-21 Pat Name: Susan Obregon Department: 111 Room: 2N0 Gender: F Solutions Developer: [id number] : [id number] Requested By: Rodo Molina Order Number: [id number] Reading MD: Lane Mendez MD Measurements Intervals Tensed Rate: 70 P: WA: 0 QRS: 98 QRSD: 113 T: 150 QT: 408 QTc: 429 Interpretive Statements ATRIAL FIBRILLATION BORDERLINE RIGHT AXIS DEVIATION INCOMPLETE RIGHT BUNDLE BRANCH BLOCK Electronically Signed On 10-22-2016 21:28:[address] Mendez MD
[2016-10-23] MEDS: Acetaminophen 325 MG TABLET PO PRN ×2 (04:34→20:29)
[2016-10-23 06:12] LABS: BUN/Creatinine Ratio 23 (6-26); Blood Urea Nitrogen 23 mg/dL (7-20); Calcium 9.5 mg/dL (8.6-10.8); Carbon Dioxide 21 mEq/L (19-29); Chloride 109 mEq/L (98-109); Glucose 101 mg/dL (70-99); Osmolality,Calculated 294 (280-300); Sodium 140 mEq/L (136-145); eGFR For African Americans > 60 (> 60); eGFR For Non-African Americans 55 (> 60)
[2016-10-23] MEDS: Beclomethasone 40mcg MDI IH SCH ×2 (08:08→20:13)
[2016-10-23] MEDS ORDERED: Bumetanide 1 MG/4 ML VIAL IVP SCH (08:23)
--- NOTE | 2016-10-23 08:36 | Palliative Progress Note ---
<Keagan Mccloud - Last Filed: 10/23/16 08:34> Date of Encounter: 10/23/16 Time of Encounter: 08:34 - Assessment and plan (1) Goals of care, counseling/discussion Current Visit: Yes Status: Acute Assessment and plan: As discussed yesterday, patient and family have agreed that her code status be DNR-CCA/DNI Patient desires to go home with [facility]; social work also helping with approving hospital bed and 3-1 bedside commode (2) Acute and chronic respiratory failure Current Visit: Yes Status: Acute Assessment and plan: Management per primary team Still requiring 4 L NC; baseline 2.5 L Qualifiers: Respiratory failure complication: hypoxia Qualified Code(s): J96.21 - Acute and chronic respiratory failure with hypoxia (3) Right knee pain Current Visit: Yes Status: Chronic Assessment and plan: Improved with Tylenol Keep Kamiah for breakthrough/more severe pain Qualifiers: Qualified Code(s): M25.561 - Pain in right knee - Time Spent With Patient Total time spent is greater than 50% in coordination of care (as documented) at patient's floor/unit and/or counseling patient: - Subjective Interval history: Pt seen and examined with daughter at bedside. She states that she is feeling better today in terms of her breathing, and she did not use a BiPAP overnight. She remains on 4 L of oxygen and does not complain of shortness of breath at rest. She states that her right knee pain has improved with Tylenol and warm blankets. Denies any chest pain, nausea, vomiting, diarrhea, or constipation. - Constitutional Vitals: Abnormal lab results RBC 5.37 M/mcL (3.82-4.97) H 10/20/16 16:45 Hgb 16.1 g/dL (11.5-15.4) H 10/20/16 16:45 Hct 51.1 % (35.3-44.9) H 10/20/16 16:45 MCHC 31.5 g/dL (31.6-35.5) L 10/20/16 16:45 RDW 18.9 % (11.5-14.5) H 10/20/16 16:45 MPV 9.0 fL (9.4-12.4) L 10/20/16 16:45 Nucleated RBCs/100 WBC 0.3 /100 WBC (0) H 10/20/16 16:45 ABG pH 7.26 pH Units (7.32-7.45) L 10/20/16 15:06 ABG pCO2 29 mmHg (35-45) L 10/20/16 15:06 ABG pO2 84 mmHg (85-104) L 10/20/16 15:06 ABG HCO3 13.0 mEQ/L (21-27) L 10/20/16 15:06 ABG Total CO2 13.9 mEq/L (20-26) L 10/20/16 15:06 ABG Base Excess -12.5 mEq/L (-2.0 to 3.0) L 10/20/16 15:06 BUN 23 mg/dL (7-20) H 10/23/16 05:26 Est GFR (Non-Af Amer) 55 (> 60) L 10/23/16 05:26 Glucose 101 mg/dL (70-99) H 10/23/16 05:26 Total Bilirubin 1.5 mg/dL (0.2-1.2) H 10/20/16 16:45 AST 40 Units/L (5-34) H 10/20/16 16:45 Troponin I 0.11 ng/mL (0-0.03) H* 10/21/16 04:32 B-Natriuretic Peptide 2118 pg/mL (0-100) H 10/15/16 15:30 Albumin 3.3 g/dL (3.5-5.0) L 10/20/16 16:45 General appearance: Present: cooperative, no acute distress, obese - Head Head exam: Present: atraumatic, normal inspection - Eye Eye exam: Present: EOMI, PERRL, sclera anicteric - Respiratory Respiratory exam: Present: rales. Absent: respiratory distress - Cardiovascular Cardiovascular exam: Present: irregular rhythm, +S1, +S2 - GI/Abdominal GI/Abdominal exam: Present: normal bowel sounds, soft. Absent: tenderness - Extremities Exam Extremities exam: Present: pedal edema. Absent: tenderness - Neurological Exam Neurological exam: Present: alert, CN II-XII intact, strengths equal and symetr throughout. Absent: facial droop, speech deficit - Psychiatric Psychiatric exam: Present: normal affect, normal mood Palliative Quality Palliative Quality: Screen for Code Status: Yes, Screen for Goals of Care: Yes, Screen for Pain: Yes, If Pain Regimen Started, Initiate Bowel Regimen: NA, Screen for Nausea/Vomitting: Yes Code Status: 10/22/16 15:13 CODE [Resuscitation Status: Active] [RES] Routine Comment: Resuscitation Status: [id number] - Labs CBC & Chem 7: 10/20/16 16:45 10/23/16 05:26 Labs: Laboratory Results - last 24 hr 10/23/16 05:26 Sodium 140 Potassium 4.0 Chloride 109 Carbon Dioxide 21 BUN 23 H Creatinine 0.98 Est GFR ( Amer) > 60 Est GFR (Non-Af Amer) 55 L BUN/Creatinine Ratio 23 Glucose 101 H Calculated Osmolality 294 Calcium 9.5 - ABG Interpretation ABG results: ABG ABG pH 7.26 pH Units (7.32-7.45) L 10/20/16 15:06 ABG pCO2 29 mmHg (35-45) L 10/20/16 15:06 ABG pO2 84 mmHg (85-104) L 10/20/16 15:06 ABG O2 Saturation 95 % (95-98) 10/20/16 15:06 Consult Discharge Plan - Plan Instructions: Heart Failure (DC), Atrial Fibrillation (DC), Acute Respiratory Distress Syndrome (DC), Acute Kidney Injury (DC), Acute Kidney Injury (GEN), Cellulitis (DC), Chronic Obstructive Pulmonary Disease (DC), Pneumonia (DC), Acute Kidney Injury, Motor Checker (GEN) Referrals: Franck Andrade MD [Primary Care Provider] - <Kashif Chávez - Last Filed: 10/23/16 09:48> Date of Encounter: 10/23/16 - Time Spent With Patient Total time spent is greater than 50% in coordination of care (as documented) at patient's floor/unit and/or counseling patient: - Constitutional Vitals: Abnormal lab results RBC 5.37 M/mcL (3.82-4.97) H 10/20/16 16:45 Hgb 16.1 g/dL (11.5-15.4) H 10/20/16 16:45 Hct 51.1 % (35.3-44.9) H 10/20/16 16:45 MCHC 31.5 g/dL (31.6-35.5) L 10/20/16 16:45 RDW 18.9 % (11.5-14.5) H 10/20/16 16:45 MPV 9.0 fL (9.4-12.4) L 10/20/16 16:45 Nucleated RBCs/100 WBC 0.3 /100 WBC (0) H 10/20/16 16:45 ABG pH 7.26 pH Units (7.32-7.45) L 10/20/16 15:06 ABG pCO2 29 mmHg (35-45) L 10/20/16 15:06 ABG pO2 84 mmHg (85-104) L 10/20/16 15:06 ABG HCO3 13.0 mEQ/L (21-27) L 10/20/16 15:06 ABG Total CO2 13.9 mEq/L (20-26) L 10/20/16 15:06 ABG Base Excess -12.5 mEq/L (-2.0 to 3.0) L 10/20/16 15:06 BUN 23 mg/dL (7-20) H 10/23/16 05:26 Est GFR (Non-Af Amer) 55 (> 60) L 10/23/16 05:26 Glucose 101 mg/dL (70-99) H 10/23/16 05:26 Total Bilirubin 1.5 mg/dL (0.2-1.2) H 10/20/16 16:45 AST 40 Units/L (5-34) H 10/20/16 16:45 Troponin I 0.11 ng/mL (0-0.03) H* 10/21/16 04:32 B-Natriuretic Peptide 2118 pg/mL (0-100) H 10/15/16 15:30 Albumin 3.3 g/dL (3.5-5.0) L 10/20/16 16:45 - Attending Attestation I examined this patient and my medical decision-making was reviewed with the Resident Physician. I agree with the documented findings, disposition and treatment plan as described except to the extent set forth below. Palliative Quality Code Status: 10/22/16 15:13 CODE [Resuscitation Status: Active] [RES] Routine Comment: Resuscitation Status: [id number] - Labs CBC & Chem 7: 10/20/16 16:45 10/23/16 05:26 Labs: Laboratory Results - last 24 hr 10/23/16 05:26 Sodium 140 Potassium 4.0 Chloride 109 Carbon Dioxide 21 BUN 23 H Creatinine 0.98 Est GFR ( Amer) > 60 Est GFR (Non-Af Amer) 55 L BUN/Creatinine Ratio 23 Glucose 101 H Calculated Osmolality 294 Calcium 9.5 - ABG Interpretation ABG results: ABG ABG pH 7.26 pH Units (7.32-7.45) L 10/20/16 15:06 ABG pCO2 29 mmHg (35-45) L 10/20/16 15:06 ABG pO2 84 mmHg (85-104) L 10/20/16 15:06 ABG O2 Saturation 95 % (95-98) 10/20/16 15:06
[2016-10-23] MEDS ORDERED: Bumetanide 1 MG/4 ML VIAL IVP ONE (09:34)
[2016-10-23] MEDS: *HR* Dabigatran 150 MG CAPSULE PO SCH ×2 (09:56→20:29)
[2016-10-23] MEDS: Metoprolol XL (24 HR) Succ 50 MG TAB.ER.24H PO SCH (09:57)
--- NOTE | 2016-10-23 09:58 | Internal Med Progress Note ---
<Aure Garrett - Last Filed: 10/23/16 09:56> Date of Encounter: 10/23/16 Time of Encounter: 09:56 - Assessment and plan (1) Acute exacerbation of CHF (congestive heart failure) Current Visit: Yes Status: Acute Assessment and plan: Echo similar to previous from 2014. EF 55%, severe RV enlargement and hypokinesis. Flattening of IVS consistent with pressure/fluid overload. Very severe RA enlargement with bowing of intra-atrial septum into LA consistent with increased RA pressures. Moderate to severe tricuspid regurgitation. appreciate cardiology and palliative recommendations low Na diet, fluid restriction increase bumex 2mg IV BID Qualifiers: Congestive heart failure type: diastolic Qualified Code(s): I50.33 - Acute on chronic diastolic (congestive) heart failure (2) Acute and chronic respiratory failure Current Visit: Yes Status: Acute Assessment and plan: Requires 2.5-3 L O2 at home (2.5 at rest, 3 while ambulating) Currently on 4L O2, titrate O2 to maintain sats >90% 10/18 Chest x-ray negative for acute process 10/19 Proventil added to medications Qualifiers: Respiratory failure complication: hypoxia Qualified Code(s): J96.21 - Acute and chronic respiratory failure with hypoxia (3) VERITO (acute kidney injury) Current Visit: Yes Status: Resolved Assessment and plan: Resolved Kidney function improved to greater than baseline from December of last year baseline 01/05/16 Cr 1.07 GFR >60 (4) Atrial fibrillation Current Visit: Yes Status: Chronic Assessment and plan: rate controlled continue home medications of metoprolol and pradaxa Qualifiers: Atrial fibrillation type: chronic Qualified Code(s): I48.2 - Chronic atrial fibrillation (5) DVT prophylaxis Current Visit: No Status: Acute Assessment and plan: Ambulate with assistance Patient on Pradaxa for her afib. Additional pharmacologic prophylaxis is not indicated. - Subjective Interval history: Patient seen and examined. States her knee pain is improved with tylenol and warm compress. - Constitutional Vitals: Temp Pulse Resp BP Pulse Ox 97.4 F L 80 18 93/66 90 10/23/16 07:00 10/23/16 08:33 10/23/16 07:00 10/23/16 08:33 10/23/16 08:33 General appearance: Present: A&O X 3, pleasant, no acute distress - Head Head exam: Present: atraumatic, normocephalic - Eye Eye exam: Present: PERRL, conjuntiva pink, sclera anicteric Pupils: Present: PERRL - ENT ENT exam: Present: mucous membranes moist - Neck Neck exam general surgery: Present: supple - Respiratory Respiratory exam: Present: CTAB - Cardiovascular Cardiovascular exam: Present: irregular rhythm, +S1, +S2, systolic murmur - GI/Abdominal GI/Abdominal exam: Present: normal bowel sounds, soft. Absent: tenderness - Extremities Exam Extremities exam: Present: pedal edema, warm. Absent: tenderness - Neurological Exam Neurological exam: Present: alert, CN II-XII intact, oriented X3, no focal deficits - Skin Skin exam: Present: dry, intact, warm Internal Medicine: Result - Labs CBC & Chem 7: 10/20/16 16:45 10/23/16 05:26 Labs: BMP 10/23/16 05:26 Sodium 140 Potassium 4.0 Chloride 109 Carbon Dioxide 21 BUN 23 H Creatinine 0.98 Glucose 101 H Calcium 9.5 - ABG Interpretation ABG results: ABG ABG pH 7.26 pH Units (7.32-7.45) L 10/20/16 15:06 ABG pCO2 29 mmHg (35-45) L 10/20/16 15:06 ABG pO2 84 mmHg (85-104) L 10/20/16 15:06 ABG O2 Saturation 95 % (95-98) 10/20/16 15:06 - VTE Reasons for not Prescribing Prophylaxis: Not indicated-Anticoagulated or INR therapeutic Consult Discharge Plan - Plan Instructions: Heart Failure (DC), Atrial Fibrillation (DC), Acute Respiratory Distress Syndrome (DC), Acute Kidney Injury (DC), Acute Kidney Injury (GEN), Cellulitis (DC), Chronic Obstructive Pulmonary Disease (DC), Pneumonia (DC), Acute Kidney Injury, Senior Quality Assurance Specialist (GEN) Referrals: Franck Andrade MD [Primary Care Provider] - Alis Henson DO [Partnered Physician] - 10/30/16 1:00 pm <Pepe Raygoza - Last Filed: 10/23/16 18:01> Date of Encounter: 10/23/16 - Assessment and plan (1) Acute and chronic respiratory failure Current Visit: Yes Status: Acute Qualifiers: Respiratory failure complication: hypoxia Qualified Code(s): J96.21 - Acute and chronic respiratory failure with hypoxia (2) Acute exacerbation of CHF (congestive heart failure) Current Visit: Yes Status: Acute Qualifiers: Congestive heart failure type: diastolic Qualified Code(s): I50.33 - Acute on chronic diastolic (congestive) heart failure (3) 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 Current Visit: Yes Status: Acute (4) Atrial fibrillation Current Visit: Yes Status: Chronic Qualifiers: Atrial fibrillation type: chronic Qualified Code(s): I48.2 - Chronic atrial fibrillation (5) Pulmonary hypertension Current Visit: No Status: Chronic (6) VERITO (acute kidney injury) Current Visit: Yes Status: Resolved (7) CKD (chronic kidney disease) Current Visit: Yes Status: Chronic Qualifiers: Chronic kidney disease stage: stage 3 (moderate) Qualified Code(s): N18.3 - Chronic kidney disease, stage 3 (moderate) - Constitutional Vitals: Temp Pulse Resp BP Pulse Ox 97.4 F L 77 17 104/69 90 10/23/16 07:00 10/23/16 15:00 10/23/16 15:00 10/23/16 15:00 10/23/16 15:00 Internal Medicine: Result - Labs CBC & Chem 7: 10/20/16 16:45 10/23/16 05:26 Labs: BMP 10/23/16 05:26 Sodium 140 Potassium 4.0 Chloride 109 Carbon Dioxide 21 BUN 23 H Creatinine 0.98 Glucose 101 H Calcium 9.5 - ABG Interpretation ABG results: ABG ABG pH 7.26 pH Units (7.32-7.45) L 10/20/16 15:06 ABG pCO2 29 mmHg (35-45) L 10/20/16 15:06 ABG pO2 84 mmHg (85-104) L 10/20/16 15:06 ABG O2 Saturation 95 % (95-98) 10/20/16 15:06 - Attending Attestation I examined this patient and my medical decision-making was reviewed with the Resident Physician on 10/23/16. I agree with the documented findings, disposition and treatment plan as described except to the extent set forth below. Ms. Obregon is currently admitted for acute exac diastolic CHF and R heart failure. She is moderate to high risk due to potential for worsening respiratory status. Ms. Obregon is up in the chair. She is feeling better overall. Still on 4 liters oxygen. No CP or GI symptoms Exam Alert. Comfortable Heart irreg Lungs with rales I/P 1. Acute exac diastolic heart failure 2. Acute exac R heart failure 3. Severe pulmonary hypertension Further diagnoses and plan as above.
[2016-10-24] MEDS: Acetaminophen 325 MG TABLET PO PRN (05:33)
[2016-10-24 07:31] VITALS: BP 99/68
--- NOTE | 2016-10-24 08:21 | Discharge Summary ---
<Aure Garrett - Last Filed: 10/24/16 09:47> Date of Encounter: 10/24/16 Time of Encounter: 08:17 - Discharge Diagnosis (1) Acute exacerbation of CHF (congestive heart failure) Priority: Primary Status: Acute Qualifiers: Congestive heart failure type: diastolic Qualified Code(s): I50.33 - Acute on chronic diastolic (congestive) heart failure (2) Acute and chronic respiratory failure Priority: Primary Status: Acute Qualifiers: Respiratory failure complication: hypoxia Qualified Code(s): J96.21 - Acute and chronic respiratory failure with hypoxia (3) VERITO (acute kidney injury) Priority: Primary Status: Resolved (4) Atrial fibrillation Priority: Secondary Status: Chronic Qualifiers: Atrial fibrillation type: chronic Qualified Code(s): I48.2 - Chronic atrial fibrillation (5) DVT prophylaxis Priority: Secondary Status: Acute - Discharge Medications Prescriptions: Acetaminophen [Tylenol] 650 mg PO Q6HR PRN #120 tablet PRN Reason: Mild Pain (1-3) Bumetanide [Bumex] 2 mg PO BIDDIURETIC #180 tablet Home Medications: Dabigatran [Pradaxa] 150 mg PO BID 07/06/15 [History] Ferrous Sulfate 325 mg PO BID 07/06/15 [History] Fluticasone Propionate [Flovent Hfa] 1 puff IH BID 07/06/15 [History] Omeprazole [PriLOSEC] 40 mg PO QAM 07/06/15 [History] Sertraline [Zoloft] 100 mg PO QAM 07/06/15 [History] Simvastatin [Zocor] 40 mg PO QPM 07/06/15 [History] Metoprolol XL (24 HR) Succ [Toprol Xl] 50 mg PO DAILY #30 tab.er.24h 07/12/15 [ Rx] Albuterol Sulfate [Proair Hfa] 2 puff IH Q4-6H PRN 10/15/16 [History] Acetaminophen [Tylenol] 650 mg PO Q6HR PRN #120 tablet 10/24/16 [Rx] Bumetanide [Bumex] 2 mg PO BIDDIURETIC #180 tablet 10/24/16 [Rx] Allergies/Adverse Reactions: Allergies No Known Allergies Allergy (Verified 07/06/15 17:22) Date of admission: 10/15/16 23:23 Primary care physician: Franck Andrade MD Consults: 10/19/16 09:34 Consult to Administrative Aide [CONS] Routine Reason for SW Consult: POA paperwork 10/19/16 13:03 Consult to Physical Therapy [CONS] Routine Comment: Evaluate, develop and implement POC OT [Consult to Occupational Therapy] [CONS] Routine Comment: Evaluate, develop and implement POC 10/22/16 08:33 Consult to Palliative Care [CONS] Routine Comment: Consulting Provider: Palliative Care Shanelle Discharging clinician: Aure Garrett Anticipated date of discharge: 10/24/16 - Patient Status Disposition: Home Health Service Condition: Good Functional capacity at discharge: independent ambulation Overall status at discharge: patient is back to baseline - Discharge Instructions Instructions: Heart Failure (DC), Atrial Fibrillation (DC), Acute Respiratory Distress Syndrome (DC), Acute Kidney Injury (DC), Acute Kidney Injury (GEN), Cellulitis (DC), Chronic Obstructive Pulmonary Disease (DC), Pneumonia (DC), Acute Kidney Injury, Head Chef (GEN) Follow Up With: Franck Andrade MD [Primary Care Provider] - (family will call and make appoinment ) Alis Henson DO [Partnered Physician] - 10/30/16 1:00 pm - Diet and Activity Diet: low salt diet Interval History: Patient seen and examined. She is doing well, denies shortness of breath, satting in the low 90s on 4 L. She is excited about going home. Hospital course: Ms. Obregon is a 76 year old female with past medical history of hypertension, hyperlipidemia, congestive heart failure, pulmonary hypertension, A. fib on per DEXA, chronic respiratory failure on 2-3 L nasal cannula at home presented to the emergency department with complaints of increasing shortness of breath and increasing bilateral lower extremity edema over the last several months. She reports that it been gradually getting worse and she is having trouble with any activity because of shortness of breath. She was noted to have an history of present illness in the emergency department. She is admitted for acute exacerbation of CHF. She was started on IV Lasix. This was titrated up for increased benefit and due to the patient's VERITO started slow. After several days of slow improvement, Bumex was added. The patient responded much better to the Bumex so Lasix was switched to Bumex. The patient had an episode walking to the bathroom and coming back to sit in her chair where, believed to be due to hypoxia, she had seizure-like activity. She went into A. fib RVR, was hyperventilating, and needed to be placed on BiPAP. There were no electrolyte abnormalities on labs were drawn at the time, ABG showed a metabolic acidosis. The patient remained on BiPAP overnight and recovered fully. Palliative care with consultation to discuss goals of care with the patient. This resulted in a change of her CODE STATUS to [id number]. She also stated that her goal was to go home and stay home. Arrangements were made for a hospital bed at home and a prescription was made on discharge for her to go home with 4 L of oxygen via nasal cannula. On the day of discharge the patient is excited about going home, she denies shortness of breath, and she is looking forward to seeing her dog. - Time Spent with Patient Total time spent providing and/or coordinating discharge services: - Constitutional Vitals: Temp Pulse Resp BP Pulse Ox 98.2 F 73 18 99/68 88 10/24/16 07:29 10/24/16 07:29 10/24/16 07:29 10/24/16 07:29 10/24/16 07:29 General appearance: Present: A&O X 3, pleasant, no acute distress - Head Head exam: Present: atraumatic, normocephalic - Eye Eye exam: Present: PERRL, conjuntiva pink, sclera anicteric Pupils: Present: PERRL - ENT ENT exam: Present: mucous membranes moist - Neck Neck exam general surgery: Present: supple - Respiratory Respiratory exam: Present: CTAB - Cardiovascular Cardiovascular exam: Present: irregular rhythm, +S1, +S2, systolic murmur - GI/Abdominal GI/Abdominal exam: Present: soft. Absent: tenderness - Extremities Exam Extremities exam: Present: pedal edema, warm. Absent: tenderness - Neurological Exam Neurological exam: Present: alert, CN II-XII intact, oriented X3, no focal deficits - Skin Skin exam: Present: dry, intact, warm - VTE Reasons for not Prescribing Prophylaxis: Not indicated-Anticoagulated or INR therapeutic <Pepe Raygoza - Last Filed: 10/24/16 13:04> Date of Encounter: 10/24/16 - Discharge Diagnosis (1) Acute and chronic respiratory failure Status: Acute Qualifiers: Respiratory failure complication: hypoxia Qualified Code(s): J96.21 - Acute and chronic respiratory failure with hypoxia (2) Acute exacerbation of CHF (congestive heart failure) Priority: Primary Status: Acute Qualifiers: Congestive heart failure type: diastolic Qualified Code(s): I50.33 - Acute on chronic diastolic (congestive) heart failure (3) 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 Priority: Primary Status: Acute (4) Atrial fibrillation Priority: Secondary Status: Chronic Qualifiers: Atrial fibrillation type: chronic Qualified Code(s): I48.2 - Chronic atrial fibrillation (5) Pulmonary hypertension Priority: Primary Status: Chronic (6) VERITO (acute kidney injury) Priority: Secondary Status: Resolved (7) CKD (chronic kidney disease) Priority: Secondary Status: Chronic Qualifiers: Chronic kidney disease stage: stage 3 (moderate) Qualified Code(s): N18.3 - Chronic kidney disease, stage 3 (moderate) Date of admission: 10/15/16 23:23 Primary care physician: Franck Andrade MD Consults: 10/19/16 09:34 Consult to Administrative Aide [CONS] Routine Reason for SW Consult: POA paperwork 10/19/16 13:03 Consult to Physical Therapy [CONS] Routine Comment: Evaluate, develop and implement POC OT [Consult to Occupational Therapy] [CONS] Routine Comment: Evaluate, develop and implement POC 10/22/16 08:33 Consult to Palliative Care [CONS] Routine Comment: Consulting Provider: Palliative Care [facility] course: Ms. Obregon is a 76 year old female - Time Spent with Patient Total time spent providing and/or coordinating discharge services: 37min - Constitutional Vitals: Temp Pulse Resp BP Pulse Ox 98.2 F 73 16 99/68 92 10/24/16 07:29 10/24/16 07:29 10/24/16 10:07 10/24/16 07:29 10/24/16 10:07 - Attending Attestation I examined this patient and my medical decision-making was reviewed with the Resident Physician on 10/24/16. I agree with the documented findings, disposition and treatment plan as described except to the extent set forth below. Ms. Obregon feels OK today. She denies new issues. Breathing at baseline. Vitals stable and she is afebrile. She is ready to d/c today. Exam Alert. Comfortable Heart irreg - not tachy No wheeze Plan D/C home with C Follow up with PCP.
--- NOTE | 2016-10-24 08:48 | Physician Discharge Referral ---
Home Health/Hosp Referral Info Transfer to: Home Health Attending Provider: [email or web address] cid Provider in Charge Post Discharge: PCP - Diagnosis (1) Acute exacerbation of CHF (congestive heart failure) Priority: Primary Status: Acute (2) Acute and chronic respiratory failure Priority: Primary Status: Acute (3) VERITO (acute kidney injury) Priority: Secondary Status: Resolved (4) Atrial fibrillation Priority: Secondary Status: Chronic (5) DVT prophylaxis Priority: Secondary Status: Acute - Respiratory Orders Oxygen / L per min (4) Smoking Cessation: Smoking cessation has been advised. For more information, call the [place] [employer] Quit Line at 5-795-BBSU-NOW. - Diet/Nutrition Diet/Nutrition Orders: Renal - Activity Activity Orders: Ambulate - Services Needed Following services are medically necessary services: Physical Therapy, Occupational Therapy - Transfer Medications Prescriptions: Acetaminophen [Tylenol] 650 mg PO Q6HR PRN #120 tablet PRN Reason: Mild Pain (1-3) Bumetanide [Bumex] 2 mg PO BIDDIURETIC #180 tablet Home Medications: Dabigatran [Pradaxa] 150 mg PO BID 07/06/15 [History] Ferrous Sulfate 325 mg PO BID 07/06/15 [History] Fluticasone Propionate [Flovent Hfa] 1 puff IH BID 07/06/15 [History] Omeprazole [PriLOSEC] 40 mg PO QAM 07/06/15 [History] Sertraline [Zoloft] 100 mg PO QAM 07/06/15 [History] Simvastatin [Zocor] 40 mg PO QPM 07/06/15 [History] Metoprolol XL (24 HR) Succ [Toprol Xl] 50 mg PO DAILY #30 tab.er.24h 07/12/15 [ Rx] Albuterol Sulfate [Proair Hfa] 2 puff IH Q4-6H PRN 10/15/16 [History] Acetaminophen [Tylenol] 650 mg PO Q6HR PRN #120 tablet 10/24/16 [Rx] Bumetanide [Bumex] 2 mg PO BIDDIURETIC #180 tablet 10/24/16 [Rx] Allergies/Adverse Reactions: Allergies No Known Allergies Allergy (Verified 07/06/15 17:22) Certification: Further, I certify that my clinical findings support that this patient is homebound (i.e. absences from home require considerable and taxing effort and are for medical reasons or quaker services or infrequently or short duration when for other reasons) because: Homebound Reason: Severity of cardiac or pulmonary status limits activity tolerance Attestation: My signature below is to certify that this patient is under my care and that I, or nurse practitioner, or a physician's assistant teaching professor working with me, has a face-to -face encounter with this patient.
[2016-10-24] MEDS: Metoprolol XL (24 HR) Succ 50 MG TAB.ER.24H PO SCH (08:55)
[2016-10-24] MEDS: *HR* Dabigatran 150 MG CAPSULE PO SCH (08:55)
[2016-10-24] MEDS ORDERED: Bumetanide 1 MG TABLET PO SCH (09:00)
[2016-10-24] MEDS: Beclomethasone 40mcg MDI IH SCH (10:07)
== END 2016-10-24 13:00 | disposition home health service (06) | DRG 291 ==
LOC: EMEROO 15:24 → 2NENU 15:24 → SUATTDRO 23:23
PROVIDERS: ADMIT Nurse Practitioner Family; ATTEND Internal Medicine